=== PATIENT | female | born 1930 | race Caucasian/White ===

== ENCOUNTER 2016-10-21 10:12 | Day surgery (SDC) | payer MEDICARE, OTHER ==
[~2016-10-21 10:12] MED LIST: RINGERS SOLUTION,LACTATED 1,000 ML IV PRN
--- OUTSIDE RECORDS SUMMARY | 2016-10-21 10:15 | XMS REPORT | Continuity of Care Document ---
:1930 Author Organization [facility] ([facility]) Address [address] [place] [address] Phone [phone] Care Team Providers Name Role Phone Nav Browne Primary Care Provider [phone] Source Comments This disclosure is being made pursuant to the Care Everywhere program, applicable federal and state laws, and may not contain all informaitonavailable regarding this patient.[facility] ([facility]) Active Allergies and Adverse Reactions No Known Allergies Current Medications Prescription Sig. Disp. Refills Start Date End Date Status fluticasone-salmeter Use 1 Puff by Active ol (ADVAIR 250-50) inhalation every inhaler 12 hours. tiotropium (SPIRIVA) Use 18 mcg by Active 18 mcg inhalation inhalation daily capsule . folic acid 1 mg Take 1 mg by Active tablet mouth daily. potassium chloride Take 10 mEq by Active 10 mEq XR tablet mouth daily . albuterol 2.5 mg/3 Use 3 mL by Active mL inhalation inhalation every solution 4 hours as needed (shortness of breath, wheezing). atenolol 25 mg Take 25 mg by Active tablet mouth daily. clopidogrel 75 mg Take 75 mg by Active tablet mouth daily. gabapentin 300 mg Take 300 mg by Active capsule mouth 3 times daily. ibuprofen 200 mg Take 400 mg by Active tablet mouth every 6 hours as needed (pain). levothyroxine 88 mcg Take 88 mcg by Active tablet mouth every morning before breakfast. magnesium citrate Drink 1/2 bottle Active solution and if no bowel movement in 30 minutes, drink other 1/2 bottle. . polyethylene glycol Take 17 g by Active 3350 17 gram packet mouth daily. montelukast 10 mg Take 10 mg by Active tablet mouth every evening . albuterol 90 Use 1-2 Puffs by Active mcg/Actuation inhalation every inhaler 4 hours as needed (wheezing). cholecalciferol Take 3,000 Units Active (VITAMIN D3) 1,000 by mouth daily. unit tablet meloxicam 15 mg Take 15 mg by Active tablet mouth daily. QUEtiapine 25 mg Take 25 mg by Active tablet mouth at bedtime. bisacodyl 10 mg Insert 1 30 Suppository 3 09/24/2015 Active suppository Suppository (10 mg total) rectally 2 times daily as needed. Active Problems Problem Noted Date Hypophosphatemia 09/21/2015 Hypomagnesemia 09/21/2015 Asthma 09/18/2015 SBO (small bowel obstruction) 09/18/2015 Acute kidney injury 10/11/2012 Stroke with cerebral ischemia 10/11/2012 Stroke 10/11/2012 Social History Tobacco Use Types Packs/Day Years Used Date Former Smoker Tobacco Cessation:Ready to Quit: No; Counseling Given: No Comments: Alcohol Use Drinks/Week oz/Week Comments Yes 1 Glasses of wine 0.6 rarely per pt. On special occassions since stroke in 2012 Last Filed Vital Signs Vital Sign Reading Time Taken Blood Pressure 161/85 09/24/2015 12:01 PM [employer] Pulse 79 09/24/2015 12:01 PM [employer] Temperature 36.9 C (98.4 F) 09/24/2015 12:01 PM [employer] Respiratory Rate 16 09/24/2015 12:01 PM [employer] Height 1.651 m (5' 5") 09/17/2015 10:45 PM [employer] Weight 77.7 kg (171 lb 4.8 oz) 09/23/2015 3:44 PM [employer] Body Mass Index 28.51 09/23/2015 3:44 PM [employer] Oxygen Saturation 97% 09/24/2015 12:01 PM [employer] Plan of Care Health Maintenance Due Date Last Done Comments Hepatitis B Vaccine (1 of 3 - Primary Series) 1930 Tdap Vaccine 01/22/1943 Td Vaccine 01/22/1950 Colonoscopy 01/22/1982 Zoster Vaccine 1992 Osteoporosis Screening (DXA Bone Density) 01/22/1997 Pneumococcal Vaccine (1 of 2 - PCV13) 01/22/1997 Influenza Vaccine: Seasonal (#1) 03/04/2016 Lipid Disorder Screening 10/12/2017 10/12/2012 Results from Last 3 Months Not on file
[2016-10-21] MEDS ORDERED: RINGERS SOLUTION,LACTATED 1,000 ML IV ONE (11:16)
[2016-10-21 13:43] VITALS: BP 124/72
--- NOTE | 2016-10-21 15:53 | OR ---
Operative Report - Dictated Report Narrative: OPERATIVE REPORT DATE OF OPERATION: 10/21/2016 PREOPERATIVE DIAGNOSIS: History of colon cancer. History of colon polyps. Abdominal distention POSTOPERATIVE DIAGNOSIS: Severe diverticulosis, otherwise normal exam to the small bowel to colon anastomosis OPERATION: Colonoscopy SURGEON: Cortes Doss MD ANESTHESIA: DEMETRIUS Celis CRNA INDICATIONS FOR PROCEDURE: The patient is an 86-year-old female referred by Dr. Browne. She had a right colon resection for cancer with subsequent colonoscopies in 1999, 2002, 2006, and 2009. She has had adenomatous polyps removed. She has persistent abdominal distention FINDINGS: Abdominal x-ray prior to the procedure revealed dilated small bowel loops. Extensive diverticulosis otherwise normal exam to the small bowel to colon anastomosis. No polyps identified. NARRATIVE OF PROCEDURE: The patient was identified in the holding area, and prior to the administration of anesthetic, a multidisciplinary timeout was observed. With the patient in the left lateral position and after the administration of intravenous sedation, the perineum was inspected. There was no evidence of pilonidal disease or skin breakdown. The external appearance of the anus was normal. Sphincter tone was good. The flexible fiberoptic colonoscope was inserted into the rectum which was insufflated with air. The rectal mucosa and submucosal vascular pattern appeared normal, the prep was seen to be complete. The scope was advanced through the sigmoid colon, which contained numerous non-impacted noninflamed diverticular openings. The scope was advanced up the descending colon, and around the splenic flexure where the triangular haustral architecture of the transverse colon was seen. The scope was advanced across the transverse colon to the small bowel to colon anastomosis which appeared normal. The mucosa at this level appeared normal. The scope was then slowly withdrawn in a circular fashion so that all aspects of colonic mucosa were inspected. The colon was somewhat tortuous with numerous large non-impacted noninflamed diverticular openings. The haustral architecture appeared well preserved throughout with no evidence of external compression. The mucosa and submucosal vascular pattern appeared normal, specifically there was no gross evidence to suggest colitis or inflammatory bowel disease and no AV malformations were seen. No polyps were encountered. The scope was gradually withdrawn to the level of the rectum. As much insufflated air as possible was removed. The scope was withdrawn from the patient and the procedure terminated. The patient tolerated the anesthetic and procedure well without complication and was transferred back to the ambulatory surgery area awake and in stable condition. The patient remained stable throughout a period of postoperative observation. Her abdomen did remain tympanitic in the right upper quadrant, however she denied abdominal discomfort, was able to tolerate by mouth intake, and was up without assistance. I shared the operative findings with the patient and she was offered copies of the photographs which appear in the medical record. She was discharged home with instructions not to engage in hazardous activity today , but may resume normal activity tomorrow, and advance diet as tolerated. She is to continue those medications as listed in the history and physical exam. I made arrangements to discuss her case with Dr. Browne. Reviewed and electronically signed
== END 2016-10-21 10:13 | disposition home or self-care (01) ==
LOC: AMB 10:12
PROVIDERS: ATTEND Surgery
PROC: 0DJD8ZZ Inspection of Lower Intestinal Tract, Via Natural or Artificial Opening Endoscopic (ICD-10-PCS; principal; 2016-10-21 12:00)
DX: Z12.11 Encounter for screening for malignant neoplasm of colon (principal); K57.30 Diverticulosis of large intestine without perforation or abscess without bleeding; I12.9 Hypertensive chronic kidney disease with stage 1 through stage 4 chronic kidney disease, or unspecified chronic kidney disease; N18.2 Chronic kidney disease, stage 2 (mild); J45.909 Unspecified asthma, uncomplicated; J44.9 Chronic obstructive pulmonary disease, unspecified; D64.9 Anemia, unspecified; K21.9 Gastro-esophageal reflux disease without esophagitis; E03.9 Hypothyroidism, unspecified; F32.9 Major depressive disorder, single episode, unspecified; F03.90 Unspecified dementia, unspecified severity, without behavioral disturbance, psychotic disturbance, mood disturbance, and anxiety; Z87.891 Personal history of nicotine dependence; Z85.038 Personal history of other malignant neoplasm of large intestine; Z68.29 Body mass index [BMI] 29.0-29.9, adult
CPT/HCPCS: 74000; G0105

== ENCOUNTER 2017-09-29 04:23 | Inpatient (IN) | payer MEDICARE, OTHER ==
[2017-09-29] MEDS ORDERED: ALBUTEROL SULFATE/IPRATROPIUM 3 ML NEBU IH ONE ×2 (04:27→04:28)
[2017-09-29] MEDS ORDERED: METHYLPREDNISOLONE SOD SUCC/PF 125 MG/2 ML VIAL IV ONE (04:28)
[2017-09-29 04:49] LABS: Hematocrit 33.5 % (37.0-47.0); Hemoglobin 11.6 gm/dL (12.5-16.0); Mean Cell Volume 88.6 fl (78-100); Mean Corpuscular Hemoglobin 30.7 pg (27-31); Mean Corpuscular Hgb Conc 34.6 g/dl (32-36); Mean Platelet Volume 10.9 fl (6.0-9.5); Neutrophil # 14.8 K/mm3 (1.3-6.0); Neutrophil % 86.1 % (42-75.0); Platelet Count 259 K/mm3 (150-450); Red Blood Count 3.78 M/mm3 (4.2-5.4); Red Cell Distribution Width 13.2 % (11.5-14.0); White Blood Count 17.2 K/mm3 (4.0-10.5)
--- NOTE | 2017-09-29 04:54 | ERNOTE ---
Dyspnea - Date Date of Service: 09/29/17 - General Presenting Symptoms: shortness of breath, difficulty of breathing, wheezing Time Seen by Provider: 09/29/17 04:27 Source: patient Exam Limitations: no limitations - Immun/Allergies/Home Medications Immunizations: IMMUNIZATION HX Immunizations Up to Date No History of Influenza Vaccine No Hx Pneumococcal Vaccination No Allergies/Adverse Reactions: Allergies ceftriaxone sodium [From Rocephin] Allergy (Mild, Verified 09/29/17 04:41) SWELLING Home Medications: HOME MEDICATIONS Acetaminophen [Tylenol] 325 mg PO Q4H PRN 03/18/16 [Last Taken Unknown] Albuterol Sulfate [Proair Hfa] 1 - 2 puff IH Q4H PRN 03/18/16 [Last Taken Unknown] Atenolol [Tenormin] 25 mg PO DAILY 03/18/16 [Last Taken Unknown] Baclofen 10 mg PO TID 03/18/16 [Last Taken Unknown] Clopidogrel Bisulfate [Plavix] 75 mg PO DAILY 03/18/16 [Last Taken Unknown] Fluticasone/Salmeterol [Advair 250-50 Diskus] 1 puff IH BID 03/18/16 [Last Taken Unknown] Folic Acid 1 mg PO DAILY 03/18/16 [Last Taken Unknown] Gabapentin 300 mg PO TID 03/18/16 [Last Taken Unknown] Levothyroxine Sodium [Synthroid] 88 mcg PO DAILY 03/18/16 [Last Taken Unknown] Meloxicam [Mobic] 15 mg PO DAILY PRN 03/18/16 [Last Taken Unknown] Montelukast Sodium [Singulair] 10 mg PO DAILY 03/18/16 [Last Taken Unknown] Potassium Chloride [Klor-Con 10] 10 meq PO DAILY 03/18/16 [Last Taken Unknown] QUEtiapine FUMARATE [Seroquel] 25 mg PO DAILY 03/18/16 [Last Taken Unknown] Tiotropium [place] [Spiriva] 1 cap IH DAILY 03/18/16 [Last Taken Unknown] traMADol HCL [Ultram] 50 mg PO Q6H PRN 03/18/16 [Last Taken Unknown] Albuterol Sulfate [Albuterol Sulfate 2.5 MG/3 ML] 2.5 mg IH QID 10/08/16 [Last Taken Unknown] Albuterol Sulfate/Ipratropium [Duoneb 2.5-0.5MG/3ML Soln] 3 ml IH Q4H PRN [Last Taken Unknown] Docusate Sodium [Colace] 100 mg PO BID 10/08/16 [Last Taken Unknown] Polyethylene Glycol 3350 [Miralax] 17 gm PO BID 10/08/16 [Last Taken Unknown] Sennosides [Senokot] 17.2 mg PO HS 10/08/16 [Last Taken Unknown] l Acidophil/B Lactis/B Longum [Florajen3 Capsule] 460 mg PO DAILY 10/08/16 [ Last Taken Unknown] Cholecalciferol (Vitamin D3) [Vitamin D3] 1,000 unit PO DAILY 09/29/17 [Last Taken Unknown] - History of Present Illness Narrative: patient with known hx of copd has become sob in last 2-3 days Severity: moderate Treatment CLINICAL TRIAL EDUCATOR: none Initiating event: Reports: upper resp illness Frequency of episodes: Reports: frequent episodes, chronic episodes Modifying Factors - (Improves): Reports: nothing Modifying Factors (Worsens): Reports: activity Associated Symptoms-Dyspnea: Reports: fever/chills, cough Review of Systems - Narrative Narrative: chronic copd - Review of Systems Constitutional: Present: See HPI, weakness, fatigue, malaise EYE: Present: no symptoms reported ENT: Present: no symptoms reported Respiratory: Present: See HPI, shortness of breath, cough, orthopnea, wheezing Cardiology: Present: no symptoms reported Gastrointestinal/Abdominal: Present: no symptoms reported Genitourinary: Present: no symptoms reported Musculoskeletal: Present: no symptoms reported Skin: Present: no symptoms reported Neurological: Present: no symptoms reported Endocrine: Present: no symptoms reported Hematologic/Lymphatic: Present: no symptoms reported Psych: Present: no symptoms reported All Other Systems: All systems neg except as marked - Narrative Narrative: chronic copd - Patient's Past Medical History Patient History - Medical: Anemia, Dementia, Depression, Fibromyalgia, GERD, Hypothyroidism, Liver Disease, Renal Failure, Other Patient History - Cardiac/Respiratory: Atrial Fibrillation, Coronary Heart Disease, COPD, Hypertension Patient History - Cancer: Colon, Surgical Treatment Patient History - Surgical Procedures: Appendectomy, Colon Resection, Colonoscopy, T & A, Other Patient History - Other: None LMP (females 10-50): Menopausal - Family History Family History:: no untoward family reactions to anesthesia, no familial bleeding tendencies, no family history of clotting disorders, no family history of premature - Family History Children Family History - Medical: No pertinent hx Family History - Cardiac/Respiratory: No pertinent hx Family History - Cancer: Breast Father Family History - Medical: , No pertinent hx Family History - Cardiac/Respiratory: Coronary Heart Disease, CHF Family History - Cancer: No pertinent family hx Grandmother-Maternal Family History - Medical: , No pertinent hx Family History - Cardiac/Respiratory: No pertinent hx Family History - Cancer: Breast Sister Family History - Medical: , Other Family History - Cardiac/Respiratory: No pertinent hx Family History - Cancer: No pertinent family hx Mother Family History - Medical: , No pertinent hx, Other Family History - Cardiac/Respiratory: No pertinent hx Family History - Cancer: No pertinent family hx - Social History Living Situations: assisted living Abuse History: No History of abuse Psych History: No pertinent hx Smoking Status: Former smoker Have you smoked in the past 12 months: No Do you dip or chew tobacco: No Patient requests Smoking Cessation Consult: No Initiate information on Smoking Cessation: No Alcohol Use: none Drug Use: none - Immunizations Immunizations Up to Date: No Hx Pneumococcal Vaccination: No History of Influenza Vaccine: No Physical Exam - Physical Exam General Appearance: Present: severe distress, anxious Head Exam: Present: normal inspection, no evidence of injury Eye Exam: Normal inspection: bilateral, PERRL: bilateral, EOMI: bilateral Ears, Nose, Throat: Present: normal ENT inspection Neck: Present: normal inspection, nontender Respiratory: Present: respiratory distress, accessory muscle use, decreased breath sounds, rales, rhonchi, wheezing Cardiovascular/Chest: Present: regular rate, rhythm, no murmur, normal peripheral pulses Gastrointestinal/Abdominal: Present: normal bowel sounds, nontender, nondistended, soft, no organomegaly Back Exam: Present: normal inspection, normal range of motion, no CVA tenderness , no vertebral tenderness Extremity Exam: Present: normal inspection, non-tender, normal range of motion, no edema Neurological Exam: Present: alert, oriented, normal mood/affect, no motor/ sensory deficits Skin Exam: Present: normal color, warm/dry Lymphatic Exam: Present: no adenopathy ED Progress - Date and Time Seen: Date and Time: 09/29/17 05:33 patient improved,discussed labs and x-rays with hospitalist who accepts patient for admission to acute status - Results and Orders Patient's Lab Results:: I have reviewed the patient's lab results. - Vital Signs Patient's Vital Signs:: I have reviewed the patient's vital signs. Vital Signs: Vital Signs 09/29/17 09/29/17 09/29/17 04:24 04:33 04:42 Temperature 38.7 C H 38.0 C H Pulse Rate 90 88 86 Respiratory 20 22 H 21 H Rate Blood Pressure 140/58 150/51 O2 Sat by Pulse 92 93 93 Oximetry - EKG EKG: NSR EKG read: Interp. by me - X-Ray X-Ray #1 X-Ray: chest Interpretation: Interp. by me - copd, lll pneumonia - Progress/Reassessment Chief Complaint: Dyspnea Progress:: Improved - Transfer of Care Expected Disposition: Admit Plan - Plan Plan: to be admitted Departure Clinical Impression: Moderate COPD (chronic obstructive pulmonary disease) - Departure Disposition: Short Term Hospital w/Plan re Condition: Serious
[2017-09-29] MEDS ORDERED: METHYLPREDNISOLONE SOD SUCC/PF 125 MG/2 ML VIAL ONE (04:57)
[2017-09-29 05:05] LABS: ALT 17 U/L (19-67); AST 14 U/L (0-48); Albumin * 3.1 gm/dl (3.4-5.0); Alkaline Phosphatase * 104 U/L (50-170); Anion Gap 14.9 mmol/L (6.8-13.8); BNP * 1291 pg/mL (5-550); BUN/Creatinine Ratio 13.1 (9.0-21.6); Bilirubin, Total 0.9 mg/dL (0.0-1.1); Blood Urea Nitrogen 19 mg/dL (3-23); Ca. Corrected For Albumin 8.8 mg/dL (8.4-10.2); Calcium * 8.4 mg/dL (7.9-10.9); Carbon Dioxide 25.2 mmol/L (24-32.6); Chloride 102 mmol/L (97-106); Glucose * 157 mg/dL (70-110); Potassium 4.1 mmol/L (3.4-4.6); Sodium 138 mmol/L (132-142); Total Protein 7.4 gm/dL (6.2-8.2); Troponin I Less than 0.017 ng/ml (0.00-0.10)
[2017-09-29 05:24] LABS: CRP 20.1 mg/dL (0.0-0.9)
[2017-09-29] MEDS ORDERED: ALBUTEROL SULFATE 2.5 MG/0.5 ML VIAL.NEB IH PRN (05:37)
[2017-09-29] MEDS ORDERED: AZITHROMYCIN 500 MG in DEXTROSE 5 % IN WATER 250 ML IV SCH ×2 (05:45)
[2017-09-29] MEDS ORDERED: METHYLPREDNISOLONE SOD SUCC 60 MG in WATER FOR INJ.,BACTERIOSTATIC 0 ML IV SCH (05:45)
[2017-09-29] MEDS ORDERED: LEVOFLOXACIN IN DEXTROSE 5 % 750 MG/150 ML BAG IV ONE (07:30)
--- NOTE | 2017-09-29 08:35 | HP ---
Chief Complaint - Chief Complaint Date of Service: 09/29/17 Time of Service: 08:24 Chief Complaint: SOB, fever, wheezing History of Present Illness: Pt. is an 87yo WF, resident at the [facility], with PMH significant for COPD, who presented to the ER early this am due to severe SOB, wheezing, Fever. History is per records as ptMinna is very somnolent and not able to give history. In the ER she was noted to be 80% on RA, RR 20, but documented to be laboring, Temp 0f 38.7. Her influenza was negative. CXR was negative, but she did have a leukocytosis of 17K with a left shift, CRP > 20 and required 3 LNC to keep sats in the low 90's. Due to rocephin allergy she was given zithromax, 250mg due to CRF stage 3 and was admitted for further care. - Patient's Past Medical History Patient History - Medical: Anemia, Dementia, Depression, Fibromyalgia, GERD, Hypothyroidism, Liver Disease, Renal Failure, Other Patient History - Cardiac/Respiratory: Atrial Fibrillation, Coronary Heart Disease, COPD, CVA/Stroke, Hypertension Patient History - Cancer: Colon, Surgical Treatment Patient History - Surgical Procedures: Appendectomy, Colon Resection, Colonoscopy, T & A, Other Patient History - Other: None LMP (females 10-50): Menopausal - Family History Family History:: no untoward family reactions to anesthesia, no familial bleeding tendencies, no family history of clotting disorders, no family history of premature - Family History Children Family History - Medical: No pertinent hx Family History - Cardiac/Respiratory: No pertinent hx Family History - Cancer: Breast Father Family History - Medical: , No pertinent hx Family History - Cardiac/Respiratory: Coronary Heart Disease, CHF Family History - Cancer: No pertinent family hx Grandmother-Maternal Family History - Medical: , No pertinent hx Family History - Cardiac/Respiratory: No pertinent hx Family History - Cancer: Breast Sister Family History - Medical: , Other Family History - Cardiac/Respiratory: No pertinent hx Family History - Cancer: No pertinent family hx Mother Family History - Medical: , No pertinent hx, Other Family History - Cardiac/Respiratory: No pertinent hx Family History - Cancer: No pertinent family hx - Social History Living Situations: assisted living Abuse History: No History of abuse Psych History: No pertinent hx Smoking Status: Former smoker Have you smoked in the past 12 months: No Do you dip or chew tobacco: No Patient requests Smoking Cessation Consult: No Initiate information on Smoking Cessation: No Alcohol Use: none Drug Use: none - Immunizations Immunizations Up to Date: No Hx Pneumococcal Vaccination: No History of Influenza Vaccine: No Review Of Systems (GEN) - Review of Systems Generalized/Overall Review: Present: Fever, Malaise Respiratory: Present: Shortness of Breath, Wheezing Additional Comments: unable to obtain ROS due to pt. status. Immunizations: IMMUNIZATION HX Immunizations Up to Date No History of Influenza Vaccine No Hx Pneumococcal Vaccination No Allergies/Adverse Reactions: Allergies Allergy/AdvReac Type Severity Reaction Status Date / Time ceftriaxone sodium Allergy Mild SWELLING Verified 09/29/17 07:28 [From Rocephin] Home Medications: HOME MEDICATIONS Acetaminophen [Tylenol] 325 mg PO Q4H PRN 03/18/16 [Last Taken Unknown] Albuterol Sulfate [Proair Hfa] 1 - 2 puff IH Q4H PRN 03/18/16 [Last Taken Unknown] Atenolol [Tenormin] 25 mg PO DAILY 03/18/16 [Last Taken Unknown] Baclofen 10 mg PO TID 03/18/16 [Last Taken Unknown] Clopidogrel Bisulfate [Plavix] 75 mg PO DAILY 03/18/16 [Last Taken Unknown] Folic Acid 1 mg PO DAILY 03/18/16 [Last Taken Unknown] Gabapentin 300 mg PO TID 03/18/16 [Last Taken Unknown] Levothyroxine Sodium [Synthroid] 88 mcg PO DAILY 03/18/16 [Last Taken Unknown] Meloxicam [Mobic] 15 mg PO DAILY PRN 03/18/16 [Last Taken Unknown] Montelukast Sodium [Singulair] 10 mg PO DAILY 03/18/16 [Last Taken Unknown] Potassium Chloride [Klor-Con 10] 10 meq PO DAILY 03/18/16 [Last Taken Unknown] QUEtiapine FUMARATE [Seroquel] 25 mg PO DAILY 03/18/16 [Last Taken Unknown] Tiotropium [place] [Spiriva] 1 cap IH DAILY 03/18/16 [Last Taken Unknown] traMADol HCL [Ultram] 50 mg PO Q6H PRN 03/18/16 [Last Taken Unknown] Albuterol Sulfate [Albuterol Sulfate 2.5 MG/3 ML] 2.5 mg IH QID 10/08/16 [Last Taken Unknown] Docusate Sodium [Colace] 100 mg PO BID 10/08/16 [Last Taken Unknown] Polyethylene Glycol 3350 [Miralax] 17 gm PO BID 10/08/16 [Last Taken Unknown] Sennosides [Senokot] 17.2 mg PO HS 10/08/16 [Last Taken Unknown] l Acidophil/B Lactis/B Longum [Florajen3 Capsule] 460 mg PO DAILY 10/08/16 [ Last Taken Unknown] Cholecalciferol (Vitamin D3) [Vitamin D3] 1,000 unit PO DAILY 09/29/17 [Last Taken Unknown] Fluticasone/Salmeterol [Advair 250-50 Diskus] 1 puff IH BID 09/29/17 [Last Taken Unknown] Exam - Exam Vital Signs: Vital Signs - Last Taken Temp 37.0 C 09/29/17 07:16 Pulse 87 09/29/17 07:41 Resp 22 H 09/29/17 07:16 BP 129/49 09/29/17 07:16 Pulse Ox 93 09/29/17 07:16 Constitutional: Present: Moderate distress, Obtunded, Elderly Respiratory: Present: respiratory distress, accessory muscle use, crackles, wheezing, expiration (prolonged) Cardiovascular/Chest: Present: regular rate, rhythm, systolic murmur Abdomen: Present: Normal bowel sounds, soft, nontender, nondistended, no rebound tenderness, no hepatospenomegaly, distended Diagnostic Studies: Laboratory Results WBC 17.2 K/mm3 (4.0-10.5) H 09/29/17 04:35 RBC 3.78 M/mm3 (4.2-5.4) L 09/29/17 04:35 Hgb 11.6 gm/dL (12.5-16.0) L 09/29/17 04:35 Hct 33.5 % (37.0-47.0) L 09/29/17 04:35 MCV 88.6 fl (78-100) 09/29/17 04:35 MCH 30.7 pg (27-31) 09/29/17 04:35 MCHC 34.6 g/dl (32-36) 09/29/17 04:35 RDW 13.2 % (11.5-14.0) 09/29/17 04:35 Plt Count 259 K/mm3 (150-450) 09/29/17 04:35 MPV 10.9 fl (6.0-9.5) H 09/29/17 04:35 Immature Gran % (Auto) 0.40 % (0.001-0.429) 09/29/17 04:35 Immature Gran # (Auto) 0.07 K/mm3 (0.000-0.0310) H 09/29/17 04:35 Neutrophils % 86.1 % (42-75.0) H 09/29/17 04:35 Lymphocytes % 7.8 % (20-51) L 09/29/17 04:35 Monocytes % 5.0 % (0.0-9) 09/29/17 04:35 Eosinophils % 0.2 % (0.0-3.0) 09/29/17 04:35 Basophils % 0.5 % (0.0-1.0) 09/29/17 04:35 Nucleated RBC % 0.0 k/mm3 (0-1) 09/29/17 04:35 Neutrophils # 14.8 K/mm3 (1.3-6.0) H 09/29/17 04:35 Lymphocytes # 1.3 k/mm3 (1.5-3.5) L 09/29/17 04:35 Monocytes # 0.9 k/mm3 (0.0-1.0) 09/29/17 04:35 Eosinophils # 0.0 k/mm3 (0.0-0.7) 09/29/17 04:35 Absolute Basophils 0.1 k/mm3 (0.0-0.1) 09/29/17 04:35 pCO2 30.5 mmHg (32.0-45.0) L 09/29/17 04:44 pO2 73.3 mmHg (83.0-108.0) L 09/29/17 04:44 HCO3 20.3 mmol/L (21.0-28.0) L 09/29/17 04:44 Total CO2 21.3 mmol/L (19.0-24.0) 09/29/17 04:44 Base Excess -2.6 mmol/L (-2.0-3.0) L 09/29/17 04:44 ABG pH 7.44 (7.35-7.45) 09/29/17 04:44 ABG O2 Sat (Measured) 95.5 % (94.0-98.0) 09/29/17 04:44 Sodium 138 mmol/L (132-142) 09/29/17 04:35 Plasma Sodium 139 mmol/L (130-142) 09/29/17 04:35 Potassium 4.1 mmol/L (3.4-4.6) 09/29/17 04:35 Chloride 102 mmol/L (97-106) 09/29/17 04:35 Carbon Dioxide 25.2 mmol/L (24-32.6) 09/29/17 04:35 Anion Gap 14.9 mmol/L (6.8-13.8) H 09/29/17 04:35 BUN 19 mg/dL (3-23) 09/29/17 04:35 Creatinine 1.45 mg/dL (0.4-1.4) H 09/29/17 04:35 Est GFR (Non-Af Amer) 36 mL/min (60-130) L 09/29/17 04:35 BUN/Creatinine Ratio 13.1 (9.0-21.6) 09/29/17 04:35 Random Glucose 157 mg/dL (70-110) H 09/29/17 04:35 Lactic Acid, Venous 0.7 mmol/L (0.4-1.9) 09/29/17 04:50 Calcium 8.4 mg/dL (7.9-10.9) 09/29/17 04:35 Calcium Adj for Albumin 8.8 mg/dL (8.4-10.2) 09/29/17 04:35 Total Bilirubin 0.9 mg/dL (0.0-1.1) 09/29/17 04:35 AST 14 U/L (0-48) 09/29/17 04:35 ALT 17 U/L (19-67) L 09/29/17 04:35 Alkaline Phosphatase 104 U/L (50-170) 09/29/17 04:35 Troponin I Less than 0.017 ng/ml (0.00-0.10) 09/29/17 04:35 C-Reactive Prot, Quant 20.1 mg/dL (0.0-0.9) H 09/29/17 04:35 B-Natriuretic Peptide 1291 pg/mL (5-550) H 09/29/17 04:35 Total Protein 7.4 gm/dL (6.2-8.2) 09/29/17 04:35 Albumin 3.1 gm/dl (3.4-5.0) L 09/29/17 04:35 Procalcitonin 0.29 ng/mL (0.05-0.50) 09/29/17 04:35 Influenza Type A Ag Negative (NEGATIVE) 09/29/17 04:40 Influenza Type B Ag Negative (NEGATIVE) 09/29/17 04:40 Assessment/Plan - Assessment/Plan (1) COPD exacerbation Assessment: will do steroids and nebs and the levaquin should cover this as well as pneumonia. Problem: Acute (2) Chronic renal disease, stage 2, mildly decreased glomerular filtration rate between 60-89 mL/min/1.73 square meter Assessment: stable. may need to modify levaquin dosing. Problem: Acute (3) respiratory failure hypoxemia acute Assessment: on O2, will try to keep sats in the 90-95%, wean her as possible. Problem: Acute (4) Dementia Assessment: follow. Problem: Chronic Qualifiers: Dementia type: unspecified type Dementia behavioral disturbance: without behavioral disturbance Qualified Code(s): F03.90 - Unspecified dementia without behavioral disturbance (5) Discharge planning issues Assessment: anticipate her being here a minimum of 2 midnights as we see how she responds to tx and is able to be weaned off O2. Problem: Acute (6) Pneumonia Assessment: given how sick she appears, would guess this is strep pneumonia. microbiology pending. will change to levaquin as I don't believe the azithromycin is broad spectrum enough given how sick she appears. given the rales on the right, aspiration pneumonia is a possibility Problem: Acute Qualifiers: Pneumonia type: due to unspecified organism Laterality: unspecified laterality Lung location: unspecified part of lung Qualified Code(s): J18.9 - Pneumonia, unspecified organism
[2017-09-29] MEDS: METHYLPREDNISOLONE SOD SUCC 60 MG in WATER FOR INJ.,BACTERIOSTATIC 0 ML IV SCH ×3 (11:18→22:44)
[2017-09-29] MEDS: ACETAMINOPHEN 325 MG TABLET PO PRN (23:09)
[2017-09-29] MEDS ORDERED: ALBUTEROL SULFATE 2.5 MG/0.5 ML VIAL.NEB IH SCH (23:30)
[2017-09-30] MEDS: ALBUTEROL SULFATE 2.5 MG/0.5 ML VIAL.NEB IH SCH ×6 (01:59→22:21)
[2017-09-30] MEDS: METHYLPREDNISOLONE SOD SUCC 60 MG in WATER FOR INJ.,BACTERIOSTATIC 0 ML IV SCH ×3 (04:35→20:49)
[2017-09-30] MEDS ORDERED: BISACODYL 10 MG SUPP.RECT RC ONE ×2 (07:00→10:15)
--- NOTE | 2017-09-30 07:02 | PN ---
Subjective - Date and Time Seen Date: 09/30/17 Time: 06:52 Subjective Narrative: Pt. complains of more abdominal pain this am, though does not appear to be in any significant pain. States she hasn't had a bm in at least 2 days. Feels her breathing is better this am. Objective - Review of Systems Generalized/Overall Review: Reports: Weakness. Denies: Chills, Fever, Malaise EENTM: Reports: No Symptoms Reported Respiratory: Reports: Cough, Shortness of Breath, Wheezing Cardiac: Denies: Chest Pain, Edema, Palpitations Abdominal: Reports: Abdominal Pain, Constipation Genitourinary Symptoms: Reports: No Symptoms Reported Musculoskeletal Complaints: Reports: No Symptoms Reported Neurological: Reports: No Symptoms Reported Skin: Reports: No Symptoms Reported Endocrine: Reports: No Symptoms Reported - Vitals Vitals: Last Vital Signs Temp 36.7 C 09/30/17 06:39 Pulse 96 09/30/17 06:39 Resp 18 09/30/17 06:39 BP 154/72 09/30/17 06:39 Pulse Ox 94 09/30/17 06:39 - Exam Constitutional: Present: Alert, Cooperative, Mild distress - respiratory ENT Exam: Present: hearing grossly normal Neck: Present: supple Respiratory: Present: respiratory distress - mild, accessory muscle use, rales, wheezing, expiration (prolonged) Cardiovascular/Chest: Present: regular rate, rhythm, systolic murmur Abdomen: Present: tender, distended, hypoactive. Absent: guarding, rigidity, rebound tenderness Extremity: Present: non-tender Skin Exam: Present: normal color Neurologic: Present: normal mood/affect Appearance: Present: appropriate appearance, appropriate insight, neat Eye contact: Present: cooperative, good eye contact, normal speech Thoughts: Present: normal thought pattern, no apparent hallucination Assessment/Plan - Problems/Diagnosis (1) COPD exacerbation Problem: Acute Narrative: improved slightly. will continue nebs at least qid, reduce steroids slightly. continue Cornet use q2hrs awake. (2) Chronic renal disease, stage 2, mildly decreased glomerular filtration rate between 60-89 mL/min/1.73 square meter Problem: Chronic Narrative: CrCl is 49 (3) respiratory failure hypoxemia acute Problem: Acute Narrative: appears to be resolved at rest. will walk her today and see what her sats do. She is currently maintaining sats in the low 90's on RA at rest. (4) Dementia Problem: Chronic Qualifiers: Dementia type: unspecified type Dementia behavioral disturbance: without behavioral disturbance Qualified Code(s): F03.90 - Unspecified dementia without behavioral disturbance Narrative: noted memory issues by nursing. nasima caceres noted this am, but does have some medication memory issues. (5) Pneumonia Problem: Acute Qualifiers: Pneumonia type: due to unspecified organism Laterality: unspecified laterality Lung location: unspecified part of lung Qualified Code(s): J18.9 - Pneumonia, unspecified organism Narrative: continue levaquin as she does appear to be improving. will dose q48hrs due to crcl of 49 and will do 5 total doses. (6) Abdominal distension (gaseous) Problem: Acute Narrative: possible PSBO or possible ileus. will be sure not due to constipation issue with suppository and miralax. will put on bowel rest for now and start IVF. will allow sips of water. (7) Constipation, acute Problem: Acute Narrative: miralax and dulcolax suppository. (8) Discharge planning issues Problem: Acute Narrative: can discharge when bowel pattern has improved and she can ambulate without need for O2. Anticipate tomorrow being the earliest we might d/c.
[2017-09-30] MEDS: DEXTROSE 5%-0.5 NORMAL SALINE 1,000 ML IV PRN ×2 (08:58→17:11)
[2017-09-30] MEDS: POLYETHYLENE GLYCOL 3350 119 GM BTL PO SCH ×2 (10:01→10:02)
[2017-09-30] MEDS: TIOTROPIUM BROMIDE 5 CAP INHALER IH SCH (15:27)
[2017-09-30] MEDS: LEVOTHYROXINE SODIUM 88 MCG TABLET PO SCH (15:27)
[2017-09-30] MEDS: QUEtiapine FUMARATE 25 MG TABLET PO SCH (20:49)
[2017-09-30] MEDS: SENNOSIDES 8.6 MG TABLET PO SCH (20:49)
[2017-09-30] MEDS: FLUTICASONE/SALMETEROL 14 PUFF DISK.W.DEV IH SCH (20:49)
[2017-10-01] MEDS: DEXTROSE 5%-0.5 NORMAL SALINE 1,000 ML IV PRN ×3 (00:32→17:30)
[2017-10-01] MEDS: ALBUTEROL SULFATE 2.5 MG/0.5 ML VIAL.NEB IH SCH ×2 (02:37→06:03)
[2017-10-01] MEDS: METHYLPREDNISOLONE SOD SUCC 60 MG in WATER FOR INJ.,BACTERIOSTATIC 0 ML IV SCH ×2 (04:16→15:13)
[2017-10-01 06:18] LABS: Albumin * 2.9 gm/dl (3.4-5.0); Anion Gap 14.7 mmol/L (6.8-13.8); BUN/Creatinine Ratio 16.5 (9.0-21.6); Bilirubin, Total 0.4 mg/dL (0.0-1.1); Ca. Corrected For Albumin 9.5 mg/dL (8.4-10.2); Calcium * 8.9 mg/dL (7.9-10.9); Carbon Dioxide 26.5 mmol/L (24-32.6); Potassium 4.2 mmol/L (3.4-4.6); Total Protein 7.5 gm/dL (6.2-8.2)
[2017-10-01] MEDS: ACETAMINOPHEN 325 MG TABLET PO PRN (07:50)
[2017-10-01] MEDS: LEVOTHYROXINE SODIUM 88 MCG TABLET PO SCH (07:51)
--- NOTE | 2017-10-01 08:26 | PN ---
Subjective - Date and Time Seen Date: 10/01/17 Time: 08:14 Subjective Narrative: Pt. states had BM yesterday. Abdomen is less tender. Nursing notes BS x 4. She still has harsh cough and is too tired and weak to walk very far. Is wondering why she shakes so much. Objective - Review of Systems Generalized/Overall Review: Reports: Weakness. Denies: Chills, Fever, Malaise EENTM: Reports: No Symptoms Reported Respiratory: Reports: Cough, Shortness of Breath Cardiac: Denies: Chest Pain, Edema, Palpitations Abdominal: Reports: Constipation. Denies: Nausea, Vomiting, Abdominal Pain, Diarrhea, Melena Genitourinary Symptoms: Reports: No Symptoms Reported Musculoskeletal Complaints: Reports: No Symptoms Reported Neurological: Reports: Tremors, Weakness Skin: Reports: No Symptoms Reported Endocrine: Reports: No Symptoms Reported - Vitals Vitals: Last Vital Signs Temp 37 C 10/01/17 07:56 Pulse 78 10/01/17 07:56 Resp 20 10/01/17 07:56 BP 162/80 10/01/17 07:56 Pulse Ox 94 10/01/17 07:56 - Abnormal Lab Findings Abnormal Lab Findings: Abnormal Lab Results 10/01/17 Range/Units 05:57 Plasma Sodium 143 H (130-142) mmol/L Anion Gap 14.7 H (6.8-13.8) mmol/L Est GFR (Non-Af Amer) 48 L D (60-130) mL/min Random Glucose 205 H D (70-110) mg/dL ALT 15 L (19-67) U/L Albumin 2.9 L (3.4-5.0) gm/dl - EKG/Xray Findings EKG: NSR - Exam Constitutional: Present: Alert, Cooperative, Mild distress ENT Exam: Present: hearing grossly normal Neck: Present: supple Respiratory: Present: no respiratory distress, accessory muscle use, rhonchi, expiration (prolonged), other - mild breathlessness Cardiovascular/Chest: Present: regular rate, rhythm, systolic murmur Abdomen: Present: Normal bowel sounds, soft, nontender, no rebound tenderness, distended. Absent: guarding, rigidity Skin Exam: Present: normal color Lymphatic: Present: no adenopathy Neurologic: Present: normal mood/affect, other - very tremulous, especially left hand. Appearance: Present: appropriate appearance Eye contact: Present: cooperative, good eye contact, decreased rate of speech Thoughts: Present: normal thought pattern, no apparent hallucination Assessment/Plan - Problems/Diagnosis (1) COPD exacerbation Problem: Acute Narrative: improved, but still very coarse BS del, worsens with cough. Reduce steroids to q12hrs. will change nebs to prn due to tremors. continue spiriva (2) Chronic renal disease, stage 2, mildly decreased glomerular filtration rate between 60-89 mL/min/1.73 square meter Problem: Chronic Narrative: Cr improved with IVF. will continue until current Liter is completed then saline lock. (3) respiratory failure hypoxemia acute Problem: Resolved Narrative: now on RA and sats in low 90's. (4) Dementia Problem: Chronic Qualifiers: Dementia type: unspecified type Dementia behavioral disturbance: without behavioral disturbance Qualified Code(s): F03.90 - Unspecified dementia without behavioral disturbance (5) Pneumonia Problem: Acute Qualifiers: Pneumonia type: due to unspecified organism Laterality: unspecified laterality Lung location: unspecified part of lung Qualified Code(s): J18.9 - Pneumonia, unspecified organism Narrative: improving, continue levaquin q48hrs. 750mg PO. (6) Abdominal distension (gaseous) Problem: Acute Narrative: Probably PSBO that has now resolved. will do full liquids and then advance diet as tolerated. (7) Constipation, acute Problem: Acute Narrative: continue miralax, prn dulcolax supp. (8) Weakness Problem: Acute Narrative: PT for strengthening. Pt. unable to walk very far. If no improvement in the next couple days then may need to go SNF to [place]. (9) Discharge planning issues Problem: Acute Narrative: Since just resuming PO intake and with her weakness, anticipate that it will be at least until Friday before she will be discharged. (10) Partial small bowel obstruction Problem: Suspected Narrative: appears to be resolved.
[2017-10-01] MEDS: LEVOFLOXACIN IN DEXTROSE 5 % 750 MG/150 ML BAG IV SCH (09:29)
[2017-10-01] MEDS: POLYETHYLENE GLYCOL 3350 119 GM BTL PO SCH (09:30)
[2017-10-01] MEDS: TIOTROPIUM BROMIDE 5 CAP INHALER IH SCH (09:30)
[2017-10-01] MEDS: ATENOLOL 25 MG TABLET PO SCH (09:30)
[2017-10-01] MEDS: FLUTICASONE/SALMETEROL 14 PUFF DISK.W.DEV IH SCH ×2 (09:30→20:58)
[2017-10-01] MEDS: CLOPIDOGREL BISULFATE 75 MG TABLET PO SCH (09:31)
[2017-10-01] MEDS: MONTELUKAST SODIUM 10 MG TABLET PO SCH (09:31)
[2017-10-01] MEDS: QUEtiapine FUMARATE 25 MG TABLET PO SCH (09:47)
[2017-10-01] MEDS: ALBUTEROL SULFATE 2.5 MG/0.5 ML VIAL.NEB IH PRN (19:37)
[2017-10-01] MEDS: SENNOSIDES 8.6 MG TABLET PO SCH (20:58)
[2017-10-02] MEDS: DEXTROSE 5%-0.5 NORMAL SALINE 1,000 ML IV PRN ×3 (01:31→11:25)
[2017-10-02] MEDS: METHYLPREDNISOLONE SOD SUCC 60 MG in WATER FOR INJ.,BACTERIOSTATIC 0 ML IV SCH ×2 (04:27→17:09)
[2017-10-02] MEDS: ALBUTEROL SULFATE 2.5 MG/0.5 ML VIAL.NEB IH PRN ×2 (05:58→10:27)
--- NOTE | 2017-10-02 06:58 | PN ---
Subjective - Date and Time Seen Date: 10/02/17 Time: 06:46 Subjective Narrative: Patient seen today AOX3 in bed with reports of nausea, vomiting and abdominal pain. pt stated he belly was feeling much harder than it did yesterday. Objective - Review of Systems Generalized/Overall Review: Reports: No Symptoms Reported EENTM: Reports: No Symptoms Reported Respiratory: Reports: Cough, Shortness of Breath, Wheezing Cardiac: Reports: No Symptoms Reported Abdominal: Reports: Nausea, Vomiting, Abdominal Pain Genitourinary Symptoms: Reports: No Symptoms Reported Musculoskeletal Complaints: Reports: No Symptoms Reported Neurological: Reports: Tremors - left hand Skin: Reports: No Symptoms Reported - Vitals Vitals: Last Vital Signs Temp 36.8 C 10/01/17 23:51 Pulse 90 10/01/17 23:51 Resp 22 H 10/01/17 23:51 BP 144/101 10/01/17 23:51 Pulse Ox 97 10/01/17 23:51 - Exam Constitutional: Present: Alert, Oriented x3, Cooperative, Mild distress ENT Exam: Present: hearing grossly normal Neck: Present: full range of motion Breasts: Present: Exam deferred Respiratory: Present: no accessory muscle use, rhonchi, expiration (prolonged) Cardiovascular/Chest: Present: normal peripheral pulses, regular rate, rhythm, no chest tenderness, no edema Abdomen: Present: guarding, rigidity, distended, hypoactive Extremity: Present: normal range of motion Skin Exam: Present: normal color, warm/dry Neurologic: Present: oriented x 3, other - left hand tremors Appearance: Present: appropriate appearance, appropriate insight Eye contact: Present: cooperative, good eye contact Assessment/Plan Plan Narrative: Abdominal distension (gaseous) Problem: Acute Narrative: pt report abdominal pain more than it was yesterday and no longer able to tolerate the FLD suspicious for partial small bowel obstruction Keeping NPO and getting X-ray ABD flat /upright Insert NGT COPD exacerbation Problem: Acute Narrative: pt have audible wheezing Reduce steroids to q12hrs. will change nebs to prn due to tremors. continue spiriva Chronic renal disease, stage 2, mildly decreased glomerular filtration rate between 60-89 mL/min/1.73 square meter Problem: Chronic Narrative: Cr improved with IVF. IVF was stop when pt was tolerating meals, however she is distended with abdominal pain will make NPO and resume IVF Dementia Problem: Chronic Qualifiers: Dementia type: unspecified type Dementia behavioral disturbance: without behavioral disturbance Qualified Code(s): F03.90 - Unspecified dementia without behavioral disturbance Pneumonia Problem: Acute Qualifiers: Pneumonia type: due to unspecified organism Laterality: unspecified laterality Lung location: unspecified part of lung Qualified Code(s): J18.9 - Pneumonia, unspecified organism Narrative: Continue with levaquin q48hrs. 750mg PO. Constipation, acute Problem: Acute Narrative: continue miralax, prn dulcolax supp. Weakness Problem: Acute Narrative: PT for strengthening. Pt. unable to walk very far. If no improvement in the next couple days then may need to go SNF to [place]. Discharge planning issues Problem: Acute Narrative: Since just resuming PO intake and with her weakness, anticipate that it will be at least until Friday before she will be discharged. Code status: DNR VTE ppx:SCD and ambulate with physical therapy and nurses GI ppx:Protonix Time 30 minutes and case discussed with Dr Baker - Problems/Diagnosis (1) Abdominal distension (gaseous) Problem: Acute (2) Pneumonia Problem: Acute Qualifiers: Pneumonia type: due to unspecified organism Laterality: unspecified laterality Lung location: unspecified part of lung Qualified Code(s): J18.9 - Pneumonia, unspecified organism (3) Chronic renal disease, stage 2, mildly decreased glomerular filtration rate between 60-89 mL/min/1.73 square meter Problem: Chronic (4) Moderate COPD (chronic obstructive pulmonary disease) Problem: Chronic (5) Acute on chronic diastolic CHF (congestive heart failure) Problem: Chronic (6) COPD exacerbation Problem: Acute (7) Hypothyroidism (acquired) Problem: Chronic
[2017-10-02] MEDS: PANTOPRAZOLE SODIUM 40 MG in NORMAL SALINE 50 ML IV SCH (09:53)
[2017-10-02] MEDS: FLUTICASONE/SALMETEROL 14 PUFF DISK.W.DEV IH SCH ×2 (09:56→20:29)
[2017-10-02] MEDS: TIOTROPIUM BROMIDE 5 CAP INHALER IH SCH (09:59)
[2017-10-02] MEDS: LEVOTHYROXINE SODIUM 88 MCG TABLET PO SCH (10:32)
[2017-10-02] MEDS: QUEtiapine FUMARATE 25 MG TABLET PO SCH (10:32)
[2017-10-02] MEDS: CLOPIDOGREL BISULFATE 75 MG TABLET PO SCH (10:32)
[2017-10-02] MEDS: ATENOLOL 25 MG TABLET PO SCH (10:32)
[2017-10-02] MEDS: POLYETHYLENE GLYCOL 3350 119 GM BTL PO SCH (10:32)
[2017-10-02] MEDS: MONTELUKAST SODIUM 10 MG TABLET PO SCH ×2 (10:32→20:28)
[2017-10-02 11:11] LABS: Albumin * 3.1 gm/dl (3.4-5.0); Anion Gap 13.4 mmol/L (6.8-13.8); BUN/Creatinine Ratio 17.4 (9.0-21.6); Bilirubin, Total 0.5 mg/dL (0.0-1.1); Ca. Corrected For Albumin 9.5 mg/dL (8.4-10.2); Calcium * 9.1 mg/dL (7.9-10.9); Carbon Dioxide 27.2 mmol/L (24-32.6); Potassium 3.6 mmol/L (3.4-4.6); Total Protein 7.7 gm/dL (6.2-8.2)
[2017-10-02] MEDS: LIDOCAINE HCL 20 ML UDC MM SCH ×4 (11:27→22:42)
[2017-10-02] MEDS: POTASSIUM CHLORIDE 20 MEQ in DEXTROSE 5%-0.5 NORMAL SALINE 990 ML IV SCH (15:23)
[2017-10-02] MEDS: ALBUTEROL SULFATE 2.5 MG/0.5 ML VIAL.NEB IH SCH (18:30)
[2017-10-02] MEDS: BUDESONIDE 0.5 MG/2 ML VIAL.NEB IH SCH (18:33)
[2017-10-02] MEDS: SENNOSIDES 8.6 MG TABLET PO SCH (20:29)
[2017-10-02] MEDS: BISACODYL 10 MG SUPP.RECT RC SCH (20:29)
[2017-10-03] MEDS: ALBUTEROL SULFATE 2.5 MG/0.5 ML VIAL.NEB IH SCH ×4 (00:36→18:07)
[2017-10-03] MEDS: POTASSIUM CHLORIDE 20 MEQ in DEXTROSE 5%-0.5 NORMAL SALINE 990 ML IV SCH ×3 (01:15→23:12)
[2017-10-03] MEDS: LIDOCAINE HCL 20 ML UDC MM SCH ×6 (01:59→23:37)
[2017-10-03] MEDS ORDERED: METHYLPREDNISOLONE SOD SUCC 60 MG in WATER FOR INJ.,BACTERIOSTATIC 0 ML IV SCH (03:00)
[2017-10-03] MEDS: METHYLPREDNISOLONE SOD SUCC 60 MG in WATER FOR INJ.,BACTERIOSTATIC 0 ML IV SCH (03:04)
[2017-10-03] MEDS: BUDESONIDE 0.5 MG/2 ML VIAL.NEB IH SCH ×2 (06:38→18:07)
--- NOTE | 2017-10-03 07:09 | PN ---
Subjective - Date and Time Seen Date: 10/03/17 Time: 07:00 Subjective Narrative: Pt. denies flatus or BM, she does state her stomach doesn't hurt as much as yesterday. Objective - Review of Systems Generalized/Overall Review: Reports: Weakness. Denies: Chills, Fever EENTM: Reports: No Symptoms Reported Respiratory: Reports: Cough. Denies: Shortness of Breath Cardiac: Reports: No Symptoms Reported Abdominal: Reports: Abdominal Pain. Denies: Nausea, Vomiting Genitourinary Symptoms: Reports: No Symptoms Reported Musculoskeletal Complaints: Reports: No Symptoms Reported Neurological: Reports: Weakness Skin: Reports: No Symptoms Reported Endocrine: Reports: No Symptoms Reported - Vitals Vitals: Last Vital Signs Temp 36.1 C L 10/02/17 23:42 Pulse 84 10/03/17 06:38 Resp 22 H 10/03/17 06:38 BP 158/64 10/02/17 23:42 Pulse Ox 91 10/03/17 06:38 - Abnormal Lab Findings Abnormal Lab Findings: Abnormal Lab Results 10/02/17 Range/Units 10:50 Est GFR (Non-Af Amer) 48 L (60-130) mL/min Random Glucose 139 H D (70-110) mg/dL ALT 17 L (19-67) U/L Albumin 3.1 L (3.4-5.0) gm/dl - Exam Constitutional: Present: Alert, Oriented x3, Cooperative, Mild distress, Elderly ENT Exam: Present: hearing grossly normal Neck: Present: supple Respiratory: Present: no respiratory distress, no accessory muscle use, rhonchi , wheezing, expiration (prolonged) Cardiovascular/Chest: Present: regular rate, rhythm, systolic murmur Abdomen: Present: distended, no bowel sounds. Absent: tender, guarding, rigidity, rebound tenderness Extremity: Present: no calf tenderness Skin Exam: Present: normal color Neurologic: Present: normal mood/affect Appearance: Present: appropriate appearance, appropriate insight Eye contact: Present: cooperative, good eye contact, normal speech Thoughts: Present: normal thought pattern, no apparent hallucination Assessment/Plan - Problems/Diagnosis (1) COPD exacerbation Problem: Acute Narrative: stable but not to baseline. continue steroids but will change once day dosing. start prednisone taper when taking PO. (2) Chronic renal disease, stage 2, mildly decreased glomerular filtration rate between 60-89 mL/min/1.73 square meter Problem: Chronic Narrative: stable, no changes. IVF since NPO. (3) respiratory failure hypoxemia acute Problem: Resolved (4) Dementia Problem: Chronic Qualifiers: Dementia type: unspecified type Dementia behavioral disturbance: without behavioral disturbance Qualified Code(s): F03.90 - Unspecified dementia without behavioral disturbance Narrative: stable (5) Pneumonia Problem: Acute Qualifiers: Pneumonia type: due to unspecified organism Laterality: unspecified laterality Lung location: unspecified part of lung Qualified Code(s): J18.9 - Pneumonia, unspecified organism Narrative: q48hr levaquin (6) Abdominal distension (gaseous) Problem: Acute Narrative: SBO. has had copious amounts out through NGT. Will continue for now until outpt is minimal and BM, Flatus and BS are present. (7) Constipation, acute Problem: Chronic (8) Weakness Problem: Acute Narrative: continue PT. (9) Partial small bowel obstruction Problem: Acute Narrative: has had copious amounts out through NGT. Will continue for now until outpt is minimal and BM, Flatus and BS are present. will ambulate as much as possible, clamping tube while walking to see if we can't spur things along, especially since she states pain is minimal. (10) Discharge planning issues Problem: Acute Narrative: anticipate her being here through the weekend given the SBO and needing NGT probably for at least a couple more days, but will need to have tube out and taking PO before discharge.
[2017-10-03] MEDS: LEVOTHYROXINE SODIUM 88 MCG TABLET PO SCH (07:15)
[2017-10-03] MEDS: PANTOPRAZOLE SODIUM 40 MG in NORMAL SALINE 50 ML IV SCH (07:25)
[2017-10-03] MEDS: CLOPIDOGREL BISULFATE 75 MG TABLET PO SCH (09:49)
[2017-10-03] MEDS: POLYETHYLENE GLYCOL 3350 119 GM BTL PO SCH (09:49)
[2017-10-03] MEDS: QUEtiapine FUMARATE 25 MG TABLET PO SCH (09:49)
[2017-10-03] MEDS: ATENOLOL 25 MG TABLET PO SCH (09:50)
[2017-10-03] MEDS: TIOTROPIUM BROMIDE 5 CAP INHALER IH SCH (09:51)
[2017-10-03] MEDS: BISACODYL 10 MG SUPP.RECT RC SCH (09:51)
[2017-10-03] MEDS: FLUTICASONE/SALMETEROL 14 PUFF DISK.W.DEV IH SCH ×2 (09:51→20:12)
[2017-10-03] MEDS: LEVOFLOXACIN IN DEXTROSE 5 % 750 MG/150 ML BAG IV SCH (10:09)
[2017-10-03] MEDS: MONTELUKAST SODIUM 10 MG TABLET PO SCH (19:02)
--- NOTE | 2017-10-03 19:36 | CONS ---
[facility] - General Date of Service: 10/03/17 Source: patient, RN/, RN notes reviewed, old records Exam Limitations: no limitations - History of Present Illness Initial Comments: The patient states she got the flu. She usually takes MiraLAX for her bowels but she stopped. She then developed abdominal distention and vomiting. She was admitted and a nasogastric tube was placed yesterday with a large initial output. I saw the patient yesterday and adjusted the nasogastric tube which is working better. She has had a bowel movement today after a suppository. He has a history of a right hemicolectomy for cancer. Colonoscopy last spring revealed severe diverticulosis but was otherwise normal to the small bowel to colon anastomosis. The patient does have increased small bowel gas on previous x-rays. She has also been very short of breath with wheezing Severity: moderate Associated Symptoms: cough, shortness of breath Allergies/Adverse Reactions: Allergies ceftriaxone sodium [From Rocephin] Allergy (Mild, Verified 09/29/17 07:28) SWELLING Home Medications: Home Medications Medication Instructions Recorded Last Taken Acetaminophen [Tylenol] 325 mg PO Q4H PRN 03/18/16 Unknown Albuterol Sulfate [Proair Hfa] 1 - 2 puff IH Q4H PRN 03/18/16 Unknown Atenolol [Tenormin] 25 mg PO DAILY 03/18/16 Unknown Baclofen 10 mg PO TID 03/18/16 Unknown Clopidogrel Bisulfate [Plavix] 75 mg PO DAILY 03/18/16 Unknown Folic Acid 1 mg PO DAILY 03/18/16 Unknown Gabapentin 300 mg PO TID 03/18/16 Unknown Levothyroxine Sodium [Synthroid] 88 mcg PO DAILY 03/18/16 Unknown Meloxicam [Mobic] 15 mg PO DAILY PRN 03/18/16 Unknown Montelukast Sodium [Singulair] 10 mg PO DAILY 03/18/16 Unknown Potassium Chloride [Klor-Con 10] 10 meq PO DAILY 03/18/16 Unknown QUEtiapine FUMARATE [Seroquel] 25 mg PO DAILY 03/18/16 Unknown Tiotropium [place] [Spiriva] 1 cap IH DAILY 03/18/16 Unknown traMADol HCL [Ultram] 50 mg PO Q6H PRN 03/18/16 Unknown Albuterol Sulfate [Albuterol 2.5 mg IH QID 10/08/16 Unknown Sulfate 2.5 MG/3 ML] Docusate Sodium [Colace] 100 mg PO BID 10/08/16 Unknown Polyethylene Glycol 3350 [Miralax] 17 gm PO BID 10/08/16 Unknown Sennosides [Senokot] 17.2 mg PO HS 10/08/16 Unknown l Acidophil/B Lactis/B Longum 460 mg PO DAILY 10/08/16 Unknown [Florajen3 Capsule] Cholecalciferol (Vitamin D3) 1,000 unit PO DAILY 09/29/17 Unknown [Vitamin D3] Fluticasone/Salmeterol [Advair 1 puff IH BID 09/29/17 Unknown 250-50 Diskus] - Patient's Past Medical History Patient History - Medical: Anemia, Dementia, Depression, Fibromyalgia, GERD, Hypothyroidism, Liver Disease, Renal Failure, Other Patient History - Cardiac/Respiratory: Atrial Fibrillation, Coronary Heart Disease, COPD, CVA/Stroke, Hypertension Patient History - Cancer: Colon, Surgical Treatment Patient History - Surgical Procedures: Appendectomy, Colon Resection, Colonoscopy, T & A, Other Patient History - Other: None LMP (females 10-50): Menopausal - Family History Family History:: no untoward family reactions to anesthesia, no familial bleeding tendencies, no family history of clotting disorders, no family history of premature - Family History Children Family History - Medical: No pertinent hx Family History - Cardiac/Respiratory: No pertinent hx Family History - Cancer: Breast Father Family History - Medical: , No pertinent hx Family History - Cardiac/Respiratory: Coronary Heart Disease, CHF Family History - Cancer: No pertinent family hx Grandmother-Maternal Family History - Medical: , No pertinent hx Family History - Cardiac/Respiratory: No pertinent hx Family History - Cancer: Breast Sister Family History - Medical: , Other Family History - Cardiac/Respiratory: No pertinent hx Family History - Cancer: No pertinent family hx Mother Family History - Medical: , No pertinent hx, Other Family History - Cardiac/Respiratory: No pertinent hx Family History - Cancer: No pertinent family hx - Social History Living Situations: assisted living Abuse History: No History of abuse Psych History: No pertinent hx Smoking Status: Former smoker Have you smoked in the past 12 months: No Do you dip or chew tobacco: No Patient requests Smoking Cessation Consult: No Initiate information on Smoking Cessation: No Alcohol Use: none Drug Use: none - Immunizations Immunizations Up to Date: No Hx Pneumococcal Vaccination: No History of Influenza Vaccine: No Procedures APPLICATION OF SPLINT (09/08/07) ARTERIAL BLD GAS MEASURE (10/08/14) CLOSED ENDOSCOPIC BIOPSY OF LARGE INTESTINE (08/28/99) COLONOSCOPY (10/14/02) DEBRID OPN FX-FINGER (06/24/04) ENDOSC POLYPECTOMY OF LG INTEST (10/06/09) HUMERUS DIVISION NEC (02/22/08) INCIS W REM OF FORIEGN BODY OR DEV FROM SKIN & SUBCUT TISSUE (10/14/02) INSPECTION OF LOWER INTESTINAL TRACT, ENDO (10/21/16) MEASURE OF ARTERIAL SATURATION, PERIPHERAL, PERC APPROACH (09/29/17) OPEN RED-INT FIX FINGER (06/24/04) OPEN RED-INT FIX HUMERUS (02/22/08) PARTIAL HUMERECTOMY NEC (09/19/08) REMOVE INT FIX-HUMERUS (09/19/08) SOFT TISSUE DIVISION NEC (09/19/08) Medications - Medications Current Medications: Current Medications Acetaminophen (Tylenol) 650 mg PO Q6H PRN PRN Reason: Mild pain (pain scale 1-3) Stop: 10/29/17 22:57 Last Admin: 10/01/17 07:50 Dose: 650 mg Albuterol Sulfate (Albuterol Sulfate 2.5 Mg/0.5ml) 2.5 mg IH Q4H PRN PRN Reason: sob, wheezing Stop: 10/31/17 08:21 Last Admin: 10/02/17 10:27 Dose: 2.5 mg Albuterol Sulfate (Albuterol Sulfate 2.5 Mg/0.5ml) 2.5 mg IH Q6HRT [facility] Stop: 11/01/17 19:01 Last Admin: 10/03/17 18:07 Dose: 2.5 mg Atenolol (Tenormin) 25 mg PO DAILY [facility] Stop: 10/31/17 09:01 Last Admin: 10/03/17 09:50 Dose: Not Given Bisacodyl (Dulcolax Suppository) 10 mg RC DAILY [facility] Stop: 11/01/17 19:01 Last Admin: 10/03/17 09:51 Dose: 10 mg Budesonide (Pulmicort Respules) 0.5 mg IH BIDRT [facility] Stop: 11/01/17 19:01 Last Admin: 10/03/17 18:07 Dose: 0.5 mg Clopidogrel Bisulfate (Plavix) 75 mg PO DAILY [facility] Stop: 10/31/17 09:01 Last Admin: 10/03/17 09:49 Dose: Not Given Levofloxacin/Dextrose (Levaquin) 750 mg in 150 mls @ 100 mls/hr IV Q48H [facility] PRN Reason: Protocol Stop: 10/31/17 09:01 Last Admin: 10/03/17 10:09 Dose: 100 mls/hr Pantoprazole Sodium 40 mg/ (Sodium Chloride) 50 mls @ 200 mls/hr IV Q24H [facility] Stop: 11/01/17 07:31 Last Infusion: 10/03/17 07:40 Dose: Infused Potassium Chloride 20 meq/ (Dextrose/Sodium Chloride) 1,000 mls @ 100 mls/hr IV .Q10H [facility] Stop: 11/01/17 14:31 Last Admin: 10/03/17 13:00 Dose: 100 mls/hr Levothyroxine Sodium (Synthroid) 88 mcg PO 0700 [facility] Stop: 10/30/17 15:46 Last Admin: 10/03/17 07:15 Dose: Not Given Lidocaine HCl (Lidocaine Hcl Viscous 2%) 20 ml MM Q4H [facility] Stop: 11/01/17 11:01 Last Admin: 10/03/17 19:01 Dose: Not Given Montelukast Sodium (Singulair) 10 mg PO 1900 [facility] Stop: 11/01/17 19:01 Last Admin: 10/03/17 19:02 Dose: Not Given Polyethylene Glycol (Miralax) 17 gm PO DAILY [facility] Stop: 10/30/17 07:01 Last Admin: 10/03/17 09:49 Dose: Not Given Quetiapine Fumarate (Seroquel) 25 mg PO DAILY [facility] Stop: 10/30/17 21:01 Last Admin: 10/03/17 09:49 Dose: Not Given Fluticasone/Salmeterol (Advair 250-50 Diskus) 1 puff IH BID [facility] Stop: 10/30/17 21:01 Last Admin: 10/03/17 09:51 Dose: 1 puff [place]na (Senokot) 17.2 mg PO HS [facility] Stop: 10/30/17 21:01 Last Admin: 10/02/17 20:29 Dose: Not Given Tiotropium [place] (Spiriva) 1 cap IH DAILY [facility] Stop: 10/30/17 15:16 Last Admin: 10/03/17 09:51 Dose: 1 cap Review of Systems - Review of Systems Generalized/Overall Review: Present: Weakness, Fatigue. Absent: Chills, Fever EENTM: Present: Other - discomfort from the nasogastric tube Respiratory: Present: Cough, Shortness of Breath, Wheezing Cardiac: Present: No Symptoms Reported Abdominal: Present: Other - She has not vomited and only had a little over 400 mL out of her NG tube today. Her abdomen is still distended but not as painful or tender Genitourinary: Present: No Symptoms Reported Musculoskeletal: Present: No Symptoms Reported Neurological: Present: Other - Mild dementia Skin: Present: Dryness, Bruising Physical Examination - Exam Vital Signs: Vital Signs - Last Taken Temp 36.6 C 10/03/17 11:36 Pulse 86 10/03/17 18:17 Resp 20 10/03/17 18:17 BP 154/76 10/03/17 11:36 Pulse Ox 94 10/03/17 18:07 O2 Oxygen Delivery Method Room Air - Results and Findings: Narrative: X-ray of the abdomen yesterday revealed nonspecific bowel gas pattern suggesting ileus versus early small bowel obstruction although there was gas in the colon. The nasogastric tube was coiled in the stomach however has been withdrawn. - Assessments/Findings (1) Abdominal distension (gaseous) Diagnosis(s): The high nasogastric tube output initially suggested small bowel obstruction however the patient has passed gas and moved her bowels. Whether she does have partial small bowel obstruction from adhesions from her previous surgery, or an ileus related to her respiratory problem and air swallowing with underlying constipation is unclear. She would be high risk for any operative procedure such as lysis of adhesions in light of her recent respiratory difficulties so continued trial of nasogastric suction is in order. The use of Gastrografin for a CT scan may be helpful both diagnostically and therapeutically. We'll discuss the case further with Dr. Baker Problem: Acute
[2017-10-03] MEDS: SENNOSIDES 8.6 MG TABLET PO SCH (20:12)
[2017-10-03] MEDS ORDERED: KETOROLAC TROMETHAMINE 15 MG/ML VIAL IV ONE (22:22)
[2017-10-04] MEDS: ALBUTEROL SULFATE 2.5 MG/0.5 ML VIAL.NEB IH SCH ×4 (00:05→18:38)
[2017-10-04] MEDS: LIDOCAINE HCL 20 ML UDC MM SCH ×5 (02:17→18:56)
[2017-10-04] MEDS: METHYLPREDNISOLONE SOD SUCC 60 MG in WATER FOR INJ.,BACTERIOSTATIC 0 ML IV SCH (03:04)
[2017-10-04] MEDS: BUDESONIDE 0.5 MG/2 ML VIAL.NEB IH SCH ×2 (06:17→18:39)
[2017-10-04] MEDS: PANTOPRAZOLE SODIUM 40 MG in NORMAL SALINE 50 ML IV SCH (07:56)
[2017-10-04] MEDS: LEVOTHYROXINE SODIUM 88 MCG TABLET PO SCH (07:56)
--- NOTE | 2017-10-04 08:20 | PN ---
Subjective - Date and Time Seen Date: 10/04/17 Time: 08:08 Subjective Narrative: Pt. complaining of wanting the NGT out this am, pleading for it to be taken out. States no one will walk her very far, but that she's willing to do so. States she feels like she's in snf. had 1 bm, but denies flatus Objective Objective Narrative: NGT outpt. 900, 200 already this am. - Review of Systems Generalized/Overall Review: Reports: No Symptoms Reported EENTM: Reports: No Symptoms Reported Respiratory: Reports: No Symptoms Reported Cardiac: Reports: No Symptoms Reported Abdominal: Reports: No Symptoms Reported, Constipation. Denies: Abdominal Pain Genitourinary Symptoms: Reports: No Symptoms Reported Musculoskeletal Complaints: Reports: No Symptoms Reported Neurological: Reports: No Symptoms Reported Skin: Reports: No Symptoms Reported Endocrine: Reports: No Symptoms Reported - Vitals Vitals: Last Vital Signs Temp 36.8 C 10/04/17 00:48 Pulse 83 10/04/17 06:27 Resp 20 10/04/17 06:27 BP 150/77 10/04/17 00:48 Pulse Ox 94 10/04/17 06:17 - Exam Constitutional: Present: Alert, Cooperative, Mild distress, Elderly ENT Exam: Present: hearing grossly normal Neck: Present: supple Respiratory: Present: no respiratory distress, no accessory muscle use, rhonchi - del but improved Cardiovascular/Chest: Present: regular rate, rhythm, systolic murmur Abdomen: Present: Normal bowel sounds, soft, nontender, no rebound tenderness, no hepatospenomegaly, distended - very distended and tympanitic.. Absent: guarding, rigidity Extremity: Present: no pedal edema, no calf tenderness Skin Exam: Present: normal color Neurologic: Present: normal mood/affect, disoriented x 3 Appearance: Present: neat, impaired insight, impaired recent memory Eye contact: Present: cooperative, good eye contact Thoughts: Present: paranoid Assessment/Plan - Problems/Diagnosis (1) COPD exacerbation Problem: Acute Narrative: improved. IV steroids and neb tx, levaquin. (2) Chronic renal disease, stage 2, mildly decreased glomerular filtration rate between 60-89 mL/min/1.73 square meter Problem: Chronic Narrative: stable no changes, continue IVF. Check bmp in am. (3) respiratory failure hypoxemia acute Problem: Resolved (4) Dementia Problem: Chronic Qualifiers: Dementia type: unspecified type Dementia behavioral disturbance: without behavioral disturbance Qualified Code(s): F03.90 - Unspecified dementia without behavioral disturbance (5) Pneumonia Problem: Acute Qualifiers: Pneumonia type: due to unspecified organism Laterality: unspecified laterality Lung location: unspecified part of lung Qualified Code(s): J18.9 - Pneumonia, unspecified organism Narrative: improving, continue levaquin. (6) Abdominal distension (gaseous) Problem: Acute (7) Constipation, acute Problem: Chronic (8) Weakness Problem: Acute Narrative: ambulate in halls QI with assistance. continue PT. (9) Partial small bowel obstruction Problem: Acute Narrative: continue NGT for now until outpt is minimal, abdominal distension is reduced and she is having bm and more flatus. (10) Discharge planning issues Problem: Acute Narrative: cannot discharge until NGT is out, pt. on diet.
[2017-10-04] MEDS: POLYETHYLENE GLYCOL 3350 119 GM BTL PO SCH (09:46)
[2017-10-04] MEDS: CLOPIDOGREL BISULFATE 75 MG TABLET PO SCH (09:46)
[2017-10-04] MEDS: ATENOLOL 25 MG TABLET PO SCH (09:47)
[2017-10-04] MEDS: QUEtiapine FUMARATE 25 MG TABLET PO SCH (09:47)
[2017-10-04] MEDS: FLUTICASONE/SALMETEROL 14 PUFF DISK.W.DEV IH SCH ×2 (09:48→20:46)
[2017-10-04] MEDS: POTASSIUM CHLORIDE 20 MEQ in DEXTROSE 5%-0.5 NORMAL SALINE 990 ML IV SCH ×2 (09:51→18:59)
[2017-10-04] MEDS: TIOTROPIUM BROMIDE 5 CAP INHALER IH SCH (09:53)
[2017-10-04] MEDS: BISACODYL 10 MG SUPP.RECT RC SCH (09:53)
[2017-10-04] MEDS: MONTELUKAST SODIUM 10 MG TABLET PO SCH (18:56)
[2017-10-04] MEDS: SENNOSIDES 8.6 MG TABLET PO SCH (20:35)
[2017-10-05] MEDS: ALBUTEROL SULFATE 2.5 MG/0.5 ML VIAL.NEB IH SCH ×4 (00:05→18:03)
[2017-10-05] MEDS: LIDOCAINE HCL 20 ML UDC MM SCH ×7 (00:58→22:03)
[2017-10-05] MEDS: METHYLPREDNISOLONE SOD SUCC 60 MG in WATER FOR INJ.,BACTERIOSTATIC 0 ML IV SCH (03:19)
[2017-10-05] MEDS: POTASSIUM CHLORIDE 20 MEQ in DEXTROSE 5%-0.5 NORMAL SALINE 990 ML IV SCH ×2 (04:43→17:30)
[2017-10-05 05:07] LABS: Hematocrit 38.4 % (37.0-47.0); Hemoglobin 13.1 gm/dL (12.5-16.0); Mean Cell Volume 87.3 fl (78-100); Mean Corpuscular Hemoglobin 29.8 pg (27-31); Mean Corpuscular Hgb Conc 34.1 g/dl (32-36); Mean Platelet Volume 11.3 fl (6.0-9.5); Neutrophil # 3.7 K/mm3 (1.3-6.0); Neutrophil % 68.1 % (42-75.0); Platelet Count 260 K/mm3 (150-450); White Blood Count 5.4 K/mm3 (4.0-10.5)
[2017-10-05] MEDS: BUDESONIDE 0.5 MG/2 ML VIAL.NEB IH SCH ×2 (06:23→18:04)
[2017-10-05] MEDS: PANTOPRAZOLE SODIUM 40 MG in NORMAL SALINE 50 ML IV SCH (09:01)
[2017-10-05] MEDS: LEVOFLOXACIN IN DEXTROSE 5 % 750 MG/150 ML BAG IV SCH (09:02)
[2017-10-05] MEDS: FLUTICASONE/SALMETEROL 14 PUFF DISK.W.DEV IH SCH ×2 (09:04→22:03)
[2017-10-05] MEDS: LEVOTHYROXINE SODIUM 88 MCG TABLET PO SCH (09:05)
[2017-10-05] MEDS: POLYETHYLENE GLYCOL 3350 119 GM BTL PO SCH (09:05)
[2017-10-05] MEDS: CLOPIDOGREL BISULFATE 75 MG TABLET PO SCH (09:06)
[2017-10-05] MEDS: QUEtiapine FUMARATE 25 MG TABLET PO SCH (09:06)
[2017-10-05] MEDS: TIOTROPIUM BROMIDE 5 CAP INHALER IH SCH (09:06)
[2017-10-05] MEDS: BISACODYL 10 MG SUPP.RECT RC SCH (09:07)
[2017-10-05] MEDS: ATENOLOL 25 MG TABLET PO SCH (09:07)
[2017-10-05] MEDS ORDERED: DIATRIZOATE MEGLUMINE, SODIUM 30 ML BTL PO ONE (10:29)
--- NOTE | 2017-10-05 11:04 | PN ---
Subjective - Date and Time Seen Date: 10/05/17 Time: 10:58 Subjective Narrative: Pt. complaining of wanting the NGT out this am, pleading for it to be taken out. States she is walking, passing flatus and having BM. Denies abdominal pain. Objective - Review of Systems Generalized/Overall Review: Reports: No Symptoms Reported EENTM: Reports: No Symptoms Reported Respiratory: Reports: Cough, Shortness of Breath - NEW noted by nursing when ambulating., Wheezing Cardiac: Reports: No Symptoms Reported Abdominal: Reports: No Symptoms Reported Genitourinary Symptoms: Reports: No Symptoms Reported Musculoskeletal Complaints: Reports: No Symptoms Reported Neurological: Reports: Weakness Skin: Reports: No Symptoms Reported Endocrine: Reports: No Symptoms Reported - Vitals Vitals: Last Vital Signs Temp 36.8 C 10/05/17 10:22 Pulse 102 H 10/05/17 10:22 Resp 24 H 10/05/17 10:22 BP 168/82 10/05/17 10:22 Pulse Ox 96 10/05/17 10:22 - Abnormal Lab Findings Abnormal Lab Findings: Abnormal Lab Results 10/05/17 Range/Units 05:04 MPV 11.3 H (6.0-9.5) fl Immature Gran % (Auto) 1.70 H (0.001-0.429) % Immature Gran # (Auto) 0.09 H (0.000-0.0310) K/mm3 Lymphocytes # 1.1 L (1.5-3.5) k/mm3 - Exam Constitutional: Present: Alert, Oriented x3, Cooperative, Mild distress ENT Exam: Present: hearing grossly normal Neck: Present: supple Respiratory: Present: no respiratory distress, no accessory muscle use, rhonchi , wheezing Cardiovascular/Chest: Present: regular rate, rhythm, no murmur Abdomen: Present: soft, nontender, no hepatospenomegaly, no masses, distended - not tense as previous. Extremity: Present: no pedal edema, no calf tenderness Skin Exam: Present: normal color Neurologic: Present: normal mood/affect, oriented x 3 Appearance: Present: appropriate appearance, appropriate insight, neat Eye contact: Present: cooperative, good eye contact, normal speech Thoughts: Present: normal thought pattern, no apparent hallucination Assessment/Plan - Problems/Diagnosis (1) COPD exacerbation Problem: Acute Narrative: stable, continue solumedrol, nebs, levaquin (2) Chronic renal disease, stage 2, mildly decreased glomerular filtration rate between 60-89 mL/min/1.73 square meter Problem: Chronic Narrative: continue levaquin q48hrs. (3) respiratory failure hypoxemia acute Problem: Resolved (4) Dementia Problem: Chronic Qualifiers: Dementia type: unspecified type Dementia behavioral disturbance: without behavioral disturbance Qualified Code(s): F03.90 - Unspecified dementia without behavioral disturbance Narrative: stable, has good periods of lucidity, but has bizarre thoughts at times (5) Pneumonia Problem: Acute Qualifiers: Pneumonia type: due to unspecified organism Laterality: unspecified laterality Lung location: unspecified part of lung Qualified Code(s): J18.9 - Pneumonia, unspecified organism Narrative: improving, continue levaquin (6) Abdominal distension (gaseous) Problem: Acute (7) Constipation, acute Problem: Chronic (8) Weakness Problem: Acute (9) Partial small bowel obstruction Problem: Acute Narrative: Abdominal xray and NGT outpt still isn't promising so will get CT as this may be both diagnostic and therapeutic. explained to pt. that if the CT shows ileus and not obstruction, we can remove NGT and continue to walk her and slowly advance diet. (10) Discharge planning issues Problem: Acute Narrative: hopefully will be able to move more toward discharge, but have to have NGT out and on po for min. 24hrs without issues prior to discharge.
--- NOTE | 2017-10-05 13:32 | PN ---
Dictated Progress Note - Date and Time Seen: Date: 10/05/17 Time: 13:31 - Progress Note Narrative: Vital Signs - Last Taken Temp 36.8 C 10/05/17 10:22 Pulse 102 H 10/05/17 10:22 Resp 24 H 10/05/17 10:22 BP 168/82 10/05/17 10:22 Pulse Ox 96 10/05/17 10:22 Abnormal/Pending Laboratory Last 24 HRS 10/05/17 05:04 MPV 11.3 H Immature Gran % (Auto) 1.70 H Immature Gran # (Auto) 0.09 H Lymphocytes # 1.1 L Her white blood cell count has returned to normal. She has passed gas to move her bowels. There was less NG output (125 mL) CT scan of the abdomen and pelvis reveals diffuse small and large bowel dilation with no jerome obstructive point. Recommendation: Would continue NG suction and observe for passage of contrast
[2017-10-05] MEDS: SENNOSIDES 8.6 MG TABLET PO SCH (22:03)
[2017-10-05] MEDS: MONTELUKAST SODIUM 10 MG TABLET PO SCH (22:03)
[2017-10-06] MEDS: ALBUTEROL SULFATE 2.5 MG/0.5 ML VIAL.NEB IH SCH ×4 (00:17→18:30)
[2017-10-06] MEDS: METHYLPREDNISOLONE SOD SUCC 60 MG in WATER FOR INJ.,BACTERIOSTATIC 0 ML IV SCH (02:53)
[2017-10-06] MEDS: LIDOCAINE HCL 20 ML UDC MM SCH ×5 (02:53→22:15)
[2017-10-06] MEDS: POTASSIUM CHLORIDE 20 MEQ in DEXTROSE 5%-0.5 NORMAL SALINE 990 ML IV SCH ×3 (02:55→23:08)
[2017-10-06] MEDS ORDERED: ONDANSETRON HCL/PF 2 MG/ML VIAL IV PRN (03:15)
[2017-10-06] MEDS ORDERED: METOCLOPRAMIDE HCL 5 MG/ML VIAL IV ONE (07:01)
--- NOTE | 2017-10-06 07:17 | PN ---
Subjective - Date and Time Seen Date: 10/06/17 Time: 07:13 Subjective Narrative: She has no complaints this am except wants the NGT out. Nursing reports abdomen is more distended, but no pain reported by pt. No BM since contrast given. Objective - Review of Systems Generalized/Overall Review: Reports: Weakness EENTM: Reports: No Symptoms Reported Respiratory: Reports: Cough Cardiac: Reports: No Symptoms Reported Abdominal: Denies: Nausea, Vomiting, Hematemesis, Abdominal Pain, Constipation, Diarrhea Genitourinary Symptoms: Reports: No Symptoms Reported Musculoskeletal Complaints: Reports: No Symptoms Reported Neurological: Reports: No Symptoms Reported Skin: Reports: No Symptoms Reported Endocrine: Reports: No Symptoms Reported - Vitals Vitals: Last Vital Signs Temp 36.8 C 10/06/17 03:00 Pulse 78 10/06/17 03:00 Resp 20 10/06/17 03:00 BP 171/62 10/06/17 03:00 Pulse Ox 90 10/06/17 03:00 - Exam Constitutional: Present: Alert, Cooperative, No distress, Elderly ENT Exam: Present: hearing grossly normal Neck: Present: supple Respiratory: Present: no respiratory distress, no accessory muscle use, rhonchi Cardiovascular/Chest: Present: regular rate, rhythm Abdomen: Present: firm, distended, high pitched bowel sounds. Absent: tender, guarding, rigidity Extremity: Present: no calf tenderness Skin Exam: Present: normal color Neurologic: Present: normal mood/affect Appearance: Present: appropriate appearance, appropriate insight, neat Eye contact: Present: cooperative, good eye contact, normal speech Thoughts: Present: normal thought pattern, no apparent hallucination Assessment/Plan - Problems/Diagnosis (1) COPD exacerbation Problem: Acute Narrative: stable no changes in meds. (2) Chronic renal disease, stage 2, mildly decreased glomerular filtration rate between 60-89 mL/min/1.73 square meter Problem: Chronic (3) respiratory failure hypoxemia acute Problem: Resolved (4) Dementia Problem: Chronic Qualifiers: Dementia type: unspecified type Dementia behavioral disturbance: without behavioral disturbance Qualified Code(s): F03.90 - Unspecified dementia without behavioral disturbance (5) Pneumonia Problem: Acute Qualifiers: Pneumonia type: due to unspecified organism Laterality: unspecified laterality Lung location: unspecified part of lung Qualified Code(s): J18.9 - Pneumonia, unspecified organism (6) Abdominal distension (gaseous) Problem: Acute Narrative: from ileus not SBO per CT. Still she is more distended this am than yesterday. Could be due to air swallowing from COPD. continue use of cornet. will do reglan this am x 1 dose. have her ambulate as much as possible today. will reassess at noon for possible NGT removal, but she is definitely worse than yesterday. (7) Constipation, acute Problem: Chronic (8) Weakness Problem: Acute (9) Partial small bowel obstruction Problem: Acute (10) Discharge planning issues Problem: Acute Narrative: cannot discharge until NGT is out and tolerating PO.
[2017-10-06] MEDS: BUDESONIDE 0.5 MG/2 ML VIAL.NEB IH SCH ×2 (07:22→18:30)
[2017-10-06] MEDS: LEVOTHYROXINE SODIUM 88 MCG TABLET PO SCH (07:39)
[2017-10-06] MEDS: PANTOPRAZOLE SODIUM 40 MG in NORMAL SALINE 50 ML IV SCH (07:39)
[2017-10-06] MEDS: POLYETHYLENE GLYCOL 3350 119 GM BTL PO SCH (08:53)
[2017-10-06] MEDS: FLUTICASONE/SALMETEROL 14 PUFF DISK.W.DEV IH SCH ×2 (08:53→22:15)
[2017-10-06] MEDS: BISACODYL 10 MG SUPP.RECT RC SCH ×2 (08:54→22:16)
[2017-10-06] MEDS: TIOTROPIUM BROMIDE 5 CAP INHALER IH SCH (08:54)
[2017-10-06] MEDS: CLOPIDOGREL BISULFATE 75 MG TABLET PO SCH (08:54)
[2017-10-06] MEDS: QUEtiapine FUMARATE 25 MG TABLET PO SCH (08:54)
[2017-10-06] MEDS: ATENOLOL 25 MG TABLET PO SCH (08:54)
[2017-10-06] MEDS ORDERED: ENALAPRILAT DIHYDRATE 2.5 MG/2 ML VIAL IV ONE (09:45)
[2017-10-06] MEDS: METOCLOPRAMIDE HCL 5 MG/5 ML BTL PO SCH ×2 (15:53→22:14)
[2017-10-06] MEDS: MONTELUKAST SODIUM 10 MG TABLET PO SCH (22:15)
[2017-10-06] MEDS: SENNOSIDES 8.6 MG TABLET PO SCH (22:16)
[2017-10-07] MEDS: ALBUTEROL SULFATE 2.5 MG/0.5 ML VIAL.NEB IH SCH ×4 (00:06→18:22)
[2017-10-07] MEDS: LIDOCAINE HCL 20 ML UDC MM SCH ×6 (01:57→20:55)
[2017-10-07] MEDS: METHYLPREDNISOLONE SOD SUCC 60 MG in WATER FOR INJ.,BACTERIOSTATIC 0 ML IV SCH (03:14)
[2017-10-07] MEDS: METOCLOPRAMIDE HCL 5 MG/5 ML BTL PO SCH ×4 (03:15→20:56)
[2017-10-07 06:39] LABS: Albumin * 2.7 gm/dl (3.4-5.0); Anion Gap 11.6 mmol/L (6.8-13.8); BUN/Creatinine Ratio 6.8 (9.0-21.6); Bilirubin, Total 0.4 mg/dL (0.0-1.1); Ca. Corrected For Albumin 8.4 mg/dL (8.4-10.2); Calcium * 7.7 mg/dL (7.9-10.9); Carbon Dioxide 28.1 mmol/L (24-32.6); Potassium 3.7 mmol/L (3.4-4.6)
--- NOTE | 2017-10-07 06:46 | PN ---
Subjective - Date and Time Seen Date: 10/07/17 Time: 06:42 Subjective Narrative: Pt. is happy NG tube is out and states she's had no abdominal pain. Still having small BM's, no diarrhea. She would like to go home later today. Objective - Review of Systems Generalized/Overall Review: Reports: No Symptoms Reported EENTM: Reports: No Symptoms Reported Respiratory: Reports: Cough, Other - NEW Abdominal: Reports: No Symptoms Reported Genitourinary Symptoms: Reports: Incontinent Musculoskeletal Complaints: Reports: No Symptoms Reported Neurological: Reports: Weakness Skin: Reports: No Symptoms Reported Endocrine: Reports: No Symptoms Reported - Vitals Vitals: Last Vital Signs Temp 36.9 C 10/07/17 06:00 Pulse 71 10/07/17 06:00 Resp 16 10/07/17 06:00 BP 145/69 10/07/17 06:00 Pulse Ox 91 10/07/17 06:00 - Abnormal Lab Findings Abnormal Lab Findings: Abnormal Lab Results 10/07/17 Range/Units 06:23 Est GFR (Non-Af Amer) 47 L (60-130) mL/min BUN/Creatinine Ratio 6.8 L (9.0-21.6) Random Glucose 116 H (70-110) mg/dL Calcium 7.7 L (7.9-10.9) mg/dL Total Protein 6.0 L (6.2-8.2) gm/dL Albumin 2.7 L (3.4-5.0) gm/dl - Exam Constitutional: Present: Alert, Oriented x3, Cooperative, No distress ENT Exam: Present: hearing grossly normal Neck: Present: supple Respiratory: Present: no respiratory distress, no accessory muscle use, rhonchi - del, expiration (prolonged) Cardiovascular/Chest: Present: regular rate, rhythm Abdomen: Present: Normal bowel sounds, soft, nontender, distended Extremity: Present: no pedal edema, no calf tenderness Skin Exam: Present: normal color Neurologic: Present: normal mood/affect, oriented x 3 Appearance: Present: appropriate appearance, appropriate insight, neat Eye contact: Present: cooperative, good eye contact, normal speech Thoughts: Present: normal thought pattern, no apparent hallucination Assessment/Plan - Problems/Diagnosis (1) COPD exacerbation Problem: Acute Narrative: stable and improving. once taking good po will transition to PO levaquin and prednisone taper. (2) Chronic renal disease, stage 2, mildly decreased glomerular filtration rate between 60-89 mL/min/1.73 square meter Problem: Chronic (3) respiratory failure hypoxemia acute Problem: Resolved (4) Dementia Problem: Chronic Qualifiers: Dementia type: unspecified type Dementia behavioral disturbance: without behavioral disturbance Qualified Code(s): F03.90 - Unspecified dementia without behavioral disturbance Narrative: stable. (5) Pneumonia Problem: Acute Qualifiers: Pneumonia type: due to unspecified organism Laterality: unspecified laterality Lung location: unspecified part of lung Qualified Code(s): J18.9 - Pneumonia, unspecified organism Narrative: improving. (6) Abdominal distension (gaseous) Problem: Acute Narrative: due to ileus. continue suppositories to keep bowels moving. will do reglan for now as long as it doesn't cause mental/neuro issues. (7) Constipation, acute Problem: Chronic (8) Weakness Problem: Acute Narrative: continue PT for strengthening. (9) Partial small bowel obstruction Problem: Acute (10) Discharge planning issues Problem: Acute Narrative: hopefully discharge later tomorrow if tolerating a diet and taking po meds.
[2017-10-07] MEDS: PANTOPRAZOLE SODIUM 40 MG in NORMAL SALINE 50 ML IV SCH (06:53)
[2017-10-07] MEDS: LEVOTHYROXINE SODIUM 88 MCG TABLET PO SCH (06:53)
[2017-10-07] MEDS: BUDESONIDE 0.5 MG/2 ML VIAL.NEB IH SCH ×2 (07:59→18:22)
[2017-10-07] MEDS: TIOTROPIUM BROMIDE 5 CAP INHALER IH SCH (09:28)
[2017-10-07] MEDS: ATENOLOL 25 MG TABLET PO SCH (09:28)
[2017-10-07] MEDS: CLOPIDOGREL BISULFATE 75 MG TABLET PO SCH (09:28)
[2017-10-07] MEDS: QUEtiapine FUMARATE 25 MG TABLET PO SCH (09:28)
[2017-10-07] MEDS: FLUTICASONE/SALMETEROL 14 PUFF DISK.W.DEV IH SCH ×2 (09:29→20:56)
[2017-10-07] MEDS: POLYETHYLENE GLYCOL 3350 119 GM BTL PO SCH (09:29)
[2017-10-07] MEDS: LEVOFLOXACIN IN DEXTROSE 5 % 750 MG/150 ML BAG IV SCH (09:29)
[2017-10-07] MEDS: POTASSIUM CHLORIDE 20 MEQ in DEXTROSE 5%-0.5 NORMAL SALINE 990 ML IV SCH ×2 (10:04→20:54)
[2017-10-07] MEDS: BISACODYL 10 MG SUPP.RECT RC SCH ×2 (10:25→20:56)
[2017-10-07] MEDS: MONTELUKAST SODIUM 10 MG TABLET PO SCH (20:55)
[2017-10-07] MEDS: SENNOSIDES 8.6 MG TABLET PO SCH (20:56)
[2017-10-08] MEDS: LIDOCAINE HCL 20 ML UDC MM SCH ×5 (00:13→14:46)
[2017-10-08] MEDS: ALBUTEROL SULFATE 2.5 MG/0.5 ML VIAL.NEB IH SCH ×3 (01:18→12:48)
[2017-10-08] MEDS: METHYLPREDNISOLONE SOD SUCC 60 MG in WATER FOR INJ.,BACTERIOSTATIC 0 ML IV SCH (04:20)
[2017-10-08] MEDS: METOCLOPRAMIDE HCL 5 MG/5 ML BTL PO SCH ×3 (04:20→14:46)
[2017-10-08] MEDS: BUDESONIDE 0.5 MG/2 ML VIAL.NEB IH SCH (06:38)
[2017-10-08] MEDS: LEVOTHYROXINE SODIUM 88 MCG TABLET PO SCH (07:14)
[2017-10-08] MEDS ORDERED: PANTOPRAZOLE SODIUM 40 MG TABLET.EC PO SCH (07:20)
[2017-10-08] MEDS: POTASSIUM CHLORIDE 20 MEQ in DEXTROSE 5%-0.5 NORMAL SALINE 990 ML IV SCH (07:26)
[2017-10-08] MEDS: FLUTICASONE/SALMETEROL 14 PUFF DISK.W.DEV IH SCH (09:56)
[2017-10-08] MEDS: POLYETHYLENE GLYCOL 3350 119 GM BTL PO SCH (09:58)
[2017-10-08] MEDS: BISACODYL 10 MG SUPP.RECT RC SCH (09:58)
[2017-10-08] MEDS: ATENOLOL 25 MG TABLET PO SCH (09:59)
[2017-10-08] MEDS: QUEtiapine FUMARATE 25 MG TABLET PO SCH (09:59)
[2017-10-08] MEDS: CLOPIDOGREL BISULFATE 75 MG TABLET PO SCH (10:00)
[2017-10-08] MEDS: TIOTROPIUM BROMIDE 5 CAP INHALER IH SCH (10:00)
[2017-10-08 15:06] VITALS: BP 171/78
--- NOTE | 2017-10-08 15:20 | DS ---
(1) COPD exacerbation Problem: Acute (2) Chronic renal disease, stage 2, mildly decreased glomerular filtration rate between 60-89 mL/min/1.73 square meter Problem: Chronic (3) respiratory failure hypoxemia acute Problem: Resolved (4) Dementia Problem: Chronic Qualifiers: Dementia type: unspecified type Dementia behavioral disturbance: without behavioral disturbance Qualified Code(s): F03.90 - Unspecified dementia without behavioral disturbance (5) Pneumonia Problem: Acute Qualifiers: Pneumonia type: due to unspecified organism Laterality: unspecified laterality Lung location: unspecified part of lung Qualified Code(s): J18.9 - Pneumonia, unspecified organism (6) Abdominal distension (gaseous) Problem: Acute (7) Constipation, acute Problem: Chronic (8) Weakness Problem: Acute (9) Partial small bowel obstruction Problem: Acute (10) Discharge planning issues Problem: Acute Description of Stay: Pt. originally admitted for: Acute Respiratory failure Acute on chronic COPD exacerbation Pneumonia these improved with her being weaned off the oxygen in a few days and with steroid taper to a point where she could be discharged just on levaquin. During her stay she developed: Abdominal distension which was thought to be SBO. She had NGT placed with copious amount of outpt for 48hrs and the distension did not seem to be improving so CT was done which showed ileus, no obstruction. Reglan was given which seemed to improve her sx, but will not continue this due to risks in elderly with this med. Weakness: pt. had PT scheduled. She was improving but still will need some PT for strengthening upon discharge. Procedures Performed: none Discharge Location: [facility] Disposition: Home Health Service Condition: Good Discharge Activity: Activity as tolerated Discharge Diet: General/regular food Shelter Therapy: Physicial Therapy Referrals: Nav Browne MD [Primary Care Provider] - Two Weeks Additional Patient Instructions (free text): -Please make TCM appointment unless halfway discharge. Thank you! Greer @ [phone]. [facility] new. Please call report and fax orders and face to face upon discharge. Prescriptions (Any new or edited meds): Levofloxacin [Levaquin] 750 mg PO Q48H #2 tablet Complete Home Medications List: Complete Home Medication List: Acetaminophen [Tylenol] 325 mg PO Q4H PRN 03/18/16 Albuterol Sulfate [Proair Hfa] 1 - 2 puff IH Q4H PRN 03/18/16 Atenolol [Tenormin] 25 mg PO DAILY 03/18/16 Baclofen 10 mg PO TID 03/18/16 Clopidogrel Bisulfate [Plavix] 75 mg PO DAILY 03/18/16 Folic Acid 1 mg PO DAILY 03/18/16 Gabapentin 300 mg PO TID 03/18/16 Levothyroxine Sodium [Synthroid] 88 mcg PO DAILY 03/18/16 Meloxicam [Mobic] 15 mg PO DAILY PRN 03/18/16 Montelukast Sodium [Singulair] 10 mg PO DAILY 03/18/16 Potassium Chloride [Klor-Con 10] 10 meq PO DAILY 03/18/16 QUEtiapine FUMARATE [Seroquel] 25 mg PO DAILY 03/18/16 Tiotropium [place] [Spiriva] 1 cap IH DAILY 03/18/16 traMADol HCL [Ultram] 50 mg PO Q6H PRN 03/18/16 Albuterol Sulfate [Albuterol Sulfate 2.5 MG/3 ML] 2.5 mg IH QID 10/08/16 Docusate Sodium [Colace] 100 mg PO BID 10/08/16 Polyethylene Glycol 3350 [Miralax] 17 gm PO BID 10/08/16 Sennosides [Senokot] 17.2 mg PO HS 10/08/16 l Acidophil/B Lactis/B Longum [Florajen3 Capsule] 460 mg PO DAILY 10/08/16 Cholecalciferol (Vitamin D3) [Vitamin D3] 1,000 unit PO DAILY 09/29/17 Fluticasone/Salmeterol [Advair 250-50 Diskus] 1 puff IH BID 09/29/17 Bisacodyl [Dulcolax Suppository] 10 mg RC BID supp.rect 10/08/17 Levofloxacin [Levaquin] 750 mg PO Q48H #2 tablet 10/08/17 Polyethylene Glycol 3350 [Miralax] 17 gm PO DAILY btl 10/08/17
[2017-10-09] MEDS ORDERED: LEVOFLOXACIN 750 MG TABLET PO SCH (11:00)
== END 2017-10-08 17:15 | disposition home health service (06) | DRG 189 ==
LOC: SUPCPDRO 04:23 → ER 04:23 → MS 05:27
PROVIDERS: ADMIT Nurse Practitioner; ATTEND Family Medicine
PROC: 4A033R1 Measurement of Arterial Saturation, Peripheral, Percutaneous Approach (ICD-10-PCS; principal; 2017-09-29)
DX: Z85.038 Personal history of other malignant neoplasm of large intestine; K56.7 Ileus, unspecified; I12.9 Hypertensive chronic kidney disease with stage 1 through stage 4 chronic kidney disease, or unspecified chronic kidney disease; J18.9 Pneumonia, unspecified organism; Z87.891 Personal history of nicotine dependence; N18.2 Chronic kidney disease, stage 2 (mild); K59.00 Constipation, unspecified; J96.01 Acute respiratory failure with hypoxia; J44.1 Chronic obstructive pulmonary disease with (acute) exacerbation; R53.1 Weakness; J44.0 Chronic obstructive pulmonary disease with (acute) lower respiratory infection; I25.10 Atherosclerotic heart disease of native coronary artery without angina pectoris; F03.90 Unspecified dementia, unspecified severity, without behavioral disturbance, psychotic disturbance, mood disturbance, and anxiety; E03.9 Hypothyroidism, unspecified

== ENCOUNTER 2019-05-03 22:02 | Inpatient (IN) ==
[2019-05-03] MEDS ORDERED: DILTIAZEM HCL 125 MG in DEXTROSE 5 % IN WATER 100 ML IV PRN ×2 (22:20)
[2019-05-03] MEDS ORDERED: DILTIAZEM HCL 5 MG/ML VIAL IV ONE (22:20)
--- NOTE | 2019-05-03 22:23 | ERNOTE ---
Dyspnea - General Presenting Symptoms: shortness of breath Time Seen by Provider: 05/03/19 22:10 Source: patient Exam Limitations: no limitations - Immun/Allergies/Home Medications Immunizations: IMMUNIZATION HX Immunizations Up to Date No History of Influenza Vaccine No Hx Pneumococcal Vaccination Yes Allergies/Adverse Reactions: Allergies ceftriaxone sodium [From Rocephin] Allergy (Mild, Verified 05/03/19 22:09) SWELLING Home Medications: HOME MEDICATIONS Acetaminophen [Tylenol] 325 mg PO Q4H PRN 05/03/19 [Last Taken Unknown] Albuterol Sulfate [Albuterol Sulfate 2.5 MG/0.5ML] 1 vial INHALATION QID 05/03/19 [Last Taken Unknown] Albuterol Sulfate [Proair Hfa] 1 - 2 puff INHALATION Q4H PRN 05/03/19 [Last Taken Unknown] Atenolol [Tenormin] 25 mg PO DAILY 05/03/19 [Last Taken Unknown] Baclofen 10 mg PO TID 05/03/19 [Last Taken Unknown] Bisacodyl [Dulcolax Suppository] 10 mg RC BID 05/03/19 [Last Taken Unknown] Cholecalciferol (Vitamin D3) [Vitamin D3] 1,000 unit PO DAILY 05/03/19 [Last Taken Unknown] Clopidogrel Bisulfate [Plavix] 75 mg PO DAILY 05/03/19 [Last Taken Unknown] Docusate Sodium [Colace] 100 mg PO BID 05/03/19 [Last Taken Unknown] Fluticasone Propion/Salmeterol [Advair 250-50 Diskus] 1 puff INHALATION BID 05/03/19 [Last Taken Unknown] Folic Acid 1 mg PO DAILY 05/03/19 [Last Taken Unknown] Gabapentin 300 mg PO TID 05/03/19 [Last Taken Unknown] Levothyroxine Sodium [Synthroid] 88 mcg PO DAILY 05/03/19 [Last Taken Unknown] Meloxicam [Mobic] 15 mg PO DAILY PRN 05/03/19 [Last Taken Unknown] Montelukast Sodium [Singulair] 10 mg PO DAILY 05/03/19 [Last Taken Unknown] Polyethylene Glycol 3350 [Miralax] 17 gm PO DAILY 05/03/19 [Last Taken Unknown] Potassium Chloride [Klor-Con M10] 10 meq PO DAILY 05/03/19 [Last Taken Unknown] QUEtiapine FUMARATE [Seroquel] 25 mg PO DAILY 05/03/19 [Last Taken Unknown] Sennosides [Senna-Extra] 17.2 mg PO HS 05/03/19 [Last Taken Unknown] Tiotropium [place] [Spiriva] 18 mcg INHALATION DAILY 05/03/19 [Last Taken Unknown] l Acidophil/B Lactis/B Longum [Florajen3 Capsule] 460 mg PO DAILY 05/03/19 [Last Taken Unknown] traMADol HCL [Ultram] 50 mg PO Q6H PRN 05/03/19 [Last Taken Unknown] - History of Present Illness Narrative: She states she is a little short of breath until she gets her breathing treatment in the evening. Tonight she could not even get up to get her breathing treatment because she had such severe shortness of breath. She may have been getting a little bit worse over the past 2 to 3 days but much worse tonight Severity: severe Treatment [employer]: paramedics, oxygen Initiating event: Reports: none Associated Symptoms-Dyspnea: Reports: denies symptoms Review of Systems - Review of Systems Constitutional: Absent: recent illness, fever, chills ENT: Absent: nose congestion, nasal drainage Respiratory: Present: See HPI Cardiology: Present: edema - right leg for past few days. . Absent: chest pain, palpitations Gastrointestinal/Abdominal: Absent: nausea, vomiting Genitourinary: Absent: frequency, pain, dysuria Musculoskeletal: Absent: back pain Skin: Absent: rash Neurological: Absent: dizziness/light-headedness Endocrine: Absent: excessive sweating Medical History (Updated 05/04/19 @ 04:29 by Yash Blackburn DO) Weight loss (Chronic) Onset Date: ~04/15/13 Vitamin D deficiency (Chronic) Onset Date: ~08/07/12 Tremor (Chronic) Onset Date: ~12/03/11 Peripheral neuropathy (Chronic) Onset Date: ~12/03/11 Liver disease (Chronic) Onset Date: ~09/08/12 Knee pain (Chronic) Onset Date: ~09/07/12 Influenza (Chronic) Onset Date: Unknown Hypothyroidism (Chronic) Onset Date: Unknown Hypokalemia (Chronic) Onset Date: Unknown Hypertension (Chronic) Onset Date: Unknown Humerus fracture (Chronic) Onset Date: ~2007 Hearing loss (Chronic) Onset Date: Unknown GERD (gastroesophageal reflux disease) (Chronic) Onset Date: Unknown Fibromyalgia (Chronic) Onset Date: Unknown Edema (Chronic) Onset Date: Unknown Depression (Chronic) Onset Date: Unknown Dementia (Chronic) Onset Date: ~09/08/12 Colonic polyp (Chronic) Onset Date: Unknown Colon neoplasm (Chronic) Onset Date: ~1985 COPD (chronic obstructive pulmonary disease) (Chronic) Onset Date: Unknown Chronic kidney disease (Chronic) Onset Date: ~02/10/16 CVA (cerebral vascular accident) (Chronic) Onset Date: ~10/11/12 Asthma (Chronic) Onset Date: Unknown Anemia (Chronic) Onset Date: ~09/08/12 Allergic rhinitis (Chronic) Onset Date: ~01/20/14 Alcoholic hepatitis Atrial fibrillation Surgical History: Surgical History (Updated 11/10/18 @ 08:07 by Dori Shields RN) H/O colonoscopy Onset Date: ~10/21/16 History of adenoidectomy Onset Date: ~1939 History of appendectomy Onset Date: ~1985 History of cataract surgery Onset Date: Unknown History of colon resection Onset Date: ~1985 History of thumb surgery Onset Date: ~06/24/04 Hx of tonsillectomy Onset Date: ~1939 S/P ORIF (open reduction internal fixation) fracture Onset Date: ~02/22/08 S/P hardware removal Onset Date: ~09/19/08 Status post osteotomy Onset Date: ~02/22/08 Family History: Family History (Updated 11/10/18 @ 07:49 by Dori Shields RN) Father Heart disease Mother Old age Brother MVA (motor vehicle accident) Sister Cancer breast Crohns disease Grandmother Cancer breast Daughter Cancer breast Social History: (Last Reviewed 05/03/19 @ 22:21 by Yash Blackburn DO) Social History: Marital status: / household members: none current occupational status: retired Service: No Tobacco: Smoking Status: Former smoker Alcohol: alcohol intake: former Substance Use: substance use type: does not use Dietary Habits: caffeine: Yes Physical Exam - Physical Exam General Appearance: Present: wd/wn, alert, mild distress Head Exam: Present: normal inspection, no evidence of injury Ears, Nose, Throat: Present: normal ENT inspection Neck: Present: normal inspection, nontender Respiratory: Present: no respiratory distress, decreased breath sounds, expiration (prolonged) Cardiovascular/Chest: Present: tachycardia, irregularly irregular Gastrointestinal/Abdominal: Present: normal bowel sounds, tenderness - diffuse, distended. Absent: guarding, rebound Extremity Exam: Present: normal inspection, normal range of motion, no edema Neurological Exam: Present: alert, oriented, normal mood/affect Skin Exam: Present: normal color, warm/dry Lymphatic Exam: Present: no adenopathy Progress - Results and Orders Patient's Lab Results:: I have reviewed the patient's lab results. Results and Orders: Laboratory Tests 05/03/19 22:30 Sodium 129 L Plasma Sodium 130 Potassium 4.6 Chloride 94 L Carbon Dioxide 26.9 BUN 22 Creatinine 1.38 Random Glucose 150 H Calcium 8.3 Total Bilirubin 0.6 AST 47 ALT 43 Alkaline Phosphatase 114 Troponin I 0.055 B-Natriuretic Peptide 71006 H Total Protein 6.9 Albumin 3.8 - Vital Signs Patient's Vital Signs:: I have reviewed the patient's vital signs. Vital Signs: Vital Signs 05/03/19 22:05 Temperature 36.4 C Pulse Rate 158 H Respiratory Rate 26 H Blood Pressure 145/94 H O2 Sat by Pulse Oximetry 88 L - EKG EKG #1 EKG: atrial fibrillation - with RVR at 158. - X-Ray X-Ray #1 X-Ray: chest X-ray Comments: bilateral pulmonary edema with mild cardiomegaly - CT/Ultrasound CT/Ultrasound Narrative: CTA chest. 1. Findings suggest right heart failure. 2. No PE seen - Progress/Reassessment Progress:: Improved Progress Note-Subjective: 05/04/19 04:[address] Banks she agrees with admission to special care unit. Departure Clinical Impression: Atrial fibrillation with rapid ventricular response, CHF with right heart failure - Departure Disposition: Still a patient Condition: Fair
[2019-05-03 22:35] LABS: Hemoglobin 13.1 gm/dL (12.5-16.0); Mean Cell Volume 89.6 fl (78-100); Mean Corpuscular Hemoglobin 30.9 pg (27-31); Mean Corpuscular Hgb Conc 34.5 g/dl (32-36); Mean Platelet Volume 11.3 fl (8-12.5); Neutrophil # 6.3 K/mm3 (1.3-6.0); Neutrophil % 68.9 % (42-75.0); Platelet Count 219 K/mm3 (150-450); Red Blood Count 4.24 M/mm3 (4.2-5.4); White Blood Count 9.2 K/mm3 (4.0-10.5)
[2019-05-03 22:52] LABS: Troponin I 0.055 ng/mL (0.00-0.10)
[2019-05-03 22:55] LABS: Albumin * 3.8 gm/dl (3.4-5.0); Anion Gap 12.7 mmol/L (6.8-13.8); BUN/Creatinine Ratio 15.9 (9.0-21.6); Bilirubin, Total 0.6 mg/dL (0.0-1.1); Ca. Corrected For Albumin 8.1 mg/dL (8.4-10.2); Calcium * 8.3 mg/dL (7.9-10.9); Carbon Dioxide 26.9 mmol/L (24-32.6); Potassium 4.6 mmol/L (3.4-4.6); Total Protein 6.9 gm/dL (6.2-8.2)
[2019-05-03] MEDS ORDERED: FUROSEMIDE 10 MG/ML VIAL IV ONE (23:37)
[2019-05-04 00:36] LABS: Urine Bilirubin Negative (NEGATIVE); Urine Blood Negative /ul (NEGATIVE); Urine Ketone Negative (NEGATIVE); Urine Nitrite Negative (NEGATIVE); Urine Protein Negative (NEGATIVE); Urine Specific Gravity 1.015 SP.GR. (1.005-1.010); Urine Urobilinogen Normal (NORMAL)
[2019-05-04 00:43] LABS: Urine Appearance Clear (CLEAR); Urine Bacteria TRACE; Urine Color Yellow; Urine RBC None Seen /hpf (0-5); Urine WBC None Seen /hpf (0-5)
[2019-05-04] MEDS ORDERED: NORMAL SALINE 500 ML IV ONE (01:09)
[2019-05-04] MEDS ORDERED: ACETAMINOPHEN 325 MG TABLET PO PRN (08:47)
[2019-05-04] MEDS ORDERED: MELOXICAM 15 MG TABLET PO PRN (08:47)
[2019-05-04] MEDS ORDERED: ALBUTEROL SULFATE 2.5 MG/0.5 ML VIAL.NEB IH PRN (08:47)
[2019-05-04] MEDS ORDERED: FAMOTIDINE 20 MG in DEXTROSE 5 % IN WATER 100 ML IV SCH ×2 (09:00)
[2019-05-04] MEDS ORDERED: FLU VACC QS2019-20(6MOS UP)/PF 60 MCG/0.5 ML SYRINGE IM ONE (09:00)
[2019-05-04] MEDS ORDERED: ATENOLOL 25 MG TABLET PO SCH (09:00)
[2019-05-04] MEDS: FOLIC ACID 1 MG TABLET PO SCH (09:16)
[2019-05-04] MEDS: GABAPENTIN 300 MG CAPSULE PO SCH ×2 (09:16→13:41)
[2019-05-04] MEDS: CLOPIDOGREL BISULFATE 75 MG TABLET PO SCH (09:16)
[2019-05-04] MEDS: FLUTICASONE PROPION/SALMETEROL 14 PUFF DISK.W.DEV IH SCH ×2 (09:16→20:05)
[2019-05-04] MEDS: POTASSIUM CHLORIDE 10 MEQ TABLET.SA PO SCH (09:16)
[2019-05-04] MEDS: QUEtiapine FUMARATE 25 MG TABLET PO SCH (09:17)
[2019-05-04] MEDS: FUROSEMIDE 10 MG/ML VIAL IV SCH ×2 (09:17→22:20)
[2019-05-04] MEDS: CHOLECALCIFEROL 1,000 UNIT CAPSULE PO SCH (09:17)
[2019-05-04] MEDS: BACLOFEN 10 MG TABLET PO SCH ×2 (09:17→13:40)
[2019-05-04] MEDS: MONTELUKAST SODIUM 10 MG TABLET PO SCH (09:17)
[2019-05-04] MEDS: DOCUSATE SODIUM 100 MG CAPSULE PO SCH ×2 (09:17→20:08)
[2019-05-04] MEDS: LEVOTHYROXINE SODIUM 88 MCG TABLET PO SCH (09:17)
[2019-05-04] MEDS: LACTOBACILLUS ACIDOPHILUS 1 EACH CAPSULE PO SCH (09:17)
[2019-05-04] MEDS: TIOTROPIUM BROMIDE 5 CAP INHALER IH SCH (09:20)
--- NOTE | 2019-05-04 09:28 | HP ---
Chief Complaint - Chief Complaint Date of Service: 05/04/19 Time of Service: 09:14 Chief Complaint: I have had worsening shortness of breath for 3 days History of Present Illness: 89-year-old female with past medical history of bronchial asthma, atrial fibrillation, chronic kidney disease, COPD, CVA, dementia, depression, hypertension, and hypothyroidism was evaluated in our ER after she was brought in by EMS from her assisted living facility at the [facility] for worsening shortness of breath not responding to at home treatments. Patient reports that her shortness of breath began 2 to 3 days ago and initially it responded to her breathing treatments with albuterol, last night however yesterday and it was difficult to afternoon she noticed that her breathing treatments were not helping ambulate from one point to another due to severe dyspnea. Patient informed the facility staff of her condition and decision to bring her into the ER was made. She denies any chest pain but has since becoming short of breath she is sometimes dizzy. Medical History (Updated 05/04/19 @ 04:29 by Yash Blackburn DO) Weight loss (Chronic) Onset Date: ~04/15/13 Vitamin D deficiency (Chronic) Onset Date: ~08/07/12 Tremor (Chronic) Onset Date: ~12/03/11 Peripheral neuropathy (Chronic) Onset Date: ~12/03/11 Liver disease (Chronic) Onset Date: ~09/08/12 Knee pain (Chronic) Onset Date: ~09/07/12 Influenza (Chronic) Onset Date: Unknown Hypothyroidism (Chronic) Onset Date: Unknown Hypokalemia (Chronic) Onset Date: Unknown Hypertension (Chronic) Onset Date: Unknown Humerus fracture (Chronic) Onset Date: ~2007 Hearing loss (Chronic) Onset Date: Unknown GERD (gastroesophageal reflux disease) (Chronic) Onset Date: Unknown Fibromyalgia (Chronic) Onset Date: Unknown Edema (Chronic) Onset Date: Unknown Depression (Chronic) Onset Date: Unknown Dementia (Chronic) Onset Date: ~09/08/12 Colonic polyp (Chronic) Onset Date: Unknown Colon neoplasm (Chronic) Onset Date: ~1985 COPD (chronic obstructive pulmonary disease) (Chronic) Onset Date: Unknown Chronic kidney disease (Chronic) Onset Date: ~02/10/16 CVA (cerebral vascular accident) (Chronic) Onset Date: ~10/11/12 Asthma (Chronic) Onset Date: Unknown Anemia (Chronic) Onset Date: ~09/08/12 Allergic rhinitis (Chronic) Onset Date: ~01/20/14 Alcoholic hepatitis Atrial fibrillation Surgical History: Surgical History (Updated 11/10/18 @ 08:07 by Dori Shields RN) H/O colonoscopy Onset Date: ~10/21/16 History of adenoidectomy Onset Date: ~1939 History of appendectomy Onset Date: ~1985 History of cataract surgery Onset Date: Unknown History of colon resection Onset Date: ~1985 History of thumb surgery Onset Date: ~06/24/04 Hx of tonsillectomy Onset Date: ~1939 S/P ORIF (open reduction internal fixation) fracture Onset Date: ~02/22/08 S/P hardware removal Onset Date: ~09/19/08 Status post osteotomy Onset Date: ~02/22/08 Family History: Family History (Updated 11/10/18 @ 07:49 by Dori Shields RN) Father Heart disease Mother Old age Brother MVA (motor vehicle accident) Sister Cancer breast Crohns disease Grandmother Cancer breast Daughter Cancer breast Social History: (Last Reviewed 05/04/19 @ 06:52 by Sofia Harrell RN) Social History: longterm: No longterm comment: Assisted living at the [facility] Marital status: / household members: none current occupational status: retired Service: No Tobacco: Smoking Status: Former smoker Alcohol: alcohol intake: former Substance Use: substance use type: does not use Dietary Habits: caffeine: Yes Peds Patient Hx - Developmental: No Pertinent Hx Peds Patient Hx - Medical: No Pertinent Hx Peds Patient Hx - Cardiac/Respiratory: No Pertinent Hx Peds Patient Hx - Surgical: No Surgical History Patient History - Cancer: No Hx of Cancer Review Of Systems (GEN) - Review of Systems Generalized/Overall Review: Present: Weakness EENTM: Present: No Symptoms Reported Respiratory: Present: Shortness of Breath, Wheezing Cardiac: Present: No Symptoms Reported Abdominal: Present: No Symptoms Reported Genitourinary: Present: No Symptoms Reported Musculoskeletal: Present: No Symptoms Reported Neurological: Present: No Symptoms Reported Skin: Present: No Symptoms Reported Endocrine: Present: No Symptoms Reported Immunizations: IMMUNIZATION HX Immunizations Up to Date Yes History of Influenza Vaccine No Hx Pneumococcal Vaccination Yes Allergies/Adverse Reactions: Allergies Allergy/AdvReac Type Severity Reaction Status Date / Time ceftriaxone sodium Allergy Mild SWELLING Verified 05/03/19 22:09 [From [facility]] Home Medications: HOME MEDICATIONS Acetaminophen [Tylenol] 325 mg PO Q4H PRN 05/03/19 [Last Taken Unknown] Albuterol Sulfate [Albuterol Sulfate 2.5 MG/0.5ML] 1 vial INHALATION QID 05/03/19 [Last Taken Unknown] Albuterol Sulfate [Proair Hfa] 1 - 2 puff INHALATION Q4H PRN 05/03/19 [Last Taken Unknown] Atenolol [Tenormin] 25 mg PO DAILY 05/03/19 [Last Taken Unknown] Baclofen 10 mg PO TID 05/03/19 [Last Taken Unknown] Bisacodyl [Dulcolax Suppository] 10 mg RC BID 05/03/19 [Last Taken Unknown] Cholecalciferol (Vitamin D3) [Vitamin D3] 1,000 unit PO DAILY 05/03/19 [Last Taken Unknown] Clopidogrel Bisulfate [Plavix] 75 mg PO DAILY 05/03/19 [Last Taken Unknown] Docusate Sodium [Colace] 100 mg PO BID 05/03/19 [Last Taken Unknown] Fluticasone Propion/Salmeterol [Advair 250-50 Diskus] 1 puff INHALATION BID [Last Taken Unknown] Folic Acid 1 mg PO DAILY 05/03/19 [Last Taken Unknown] Gabapentin 300 mg PO TID 05/03/19 [Last Taken Unknown] Levothyroxine Sodium [Synthroid] 88 mcg PO DAILY 05/03/19 [Last Taken Unknown] Meloxicam [Mobic] 15 mg PO DAILY PRN 05/03/19 [Last Taken Unknown] Montelukast Sodium [Singulair] 10 mg PO DAILY 05/03/19 [Last Taken Unknown] Polyethylene Glycol 3350 [Miralax] 17 gm PO DAILY 05/03/19 [Last Taken Unknown] Potassium Chloride [Klor-Con M10] 10 meq PO DAILY 05/03/19 [Last Taken Unknown] QUEtiapine FUMARATE [Seroquel] 25 mg PO DAILY 05/03/19 [Last Taken Unknown] Sennosides [Senna-Extra] 17.2 mg PO HS 05/03/19 [Last Taken Unknown] Tiotropium [place] [Spiriva] 18 mcg INHALATION DAILY 05/03/19 [Last Taken Unknown] l Acidophil/B Lactis/B Longum [Florajen3 Capsule] 460 mg PO DAILY 05/03/19 [Last Taken Unknown] traMADol HCL [Ultram] 50 mg PO Q6H PRN 05/03/19 [Last Taken Unknown] Exam - Exam Vital Signs: Vital Signs - Last Taken Temp 36.4 C 05/04/19 08:44 Pulse 123 H 05/04/19 08:44 Resp 20 05/04/19 08:44 BP 136/81 05/04/19 08:44 Pulse Ox 95 05/04/19 08:44 Constitutional: Present: Alert, Oriented x3, Cooperative, Well developed, Well nourished, No distress, Elderly, Obese ENT Exam: Present: normal ENT inspection, hearing grossly normal, pharynx normal, TMs normal Eye Exam: bilateral eye: normal inspection, PERRL, EOMI Neck: Present: non-tender, full range of motion, supple, normal inspection, trachea midline Back Exam: Present: normal inspection, no CVA tenderness, no vertebral tenderness Breasts: Present: Exam deferred Respiratory: Present: decreased breath sounds, crackles, rales, wheezing Cardiovascular/Chest: Present: normal peripheral pulses, no chest tenderness, no edema - +1 pedal edema on right extremity, no gallop, no JVD, no murmur, no rub, irregularly irregular Peripheral Pulses: carotid (R): 3+, carotid (L): 3+, femoral (R): 3+, femoral (L): 3+, dorsalis-pedis (R): 2+, dorsalis-pedis (L): 2+ Abdomen: Present: Normal bowel sounds, soft, nontender, nondistended, no rebound tenderness, no hepatospenomegaly, no masses, obese, CVA tenderness /Rectal: Present: Exam deferred Extremity: Present: normal range of motion, non-tender, normal inspection, no pedal edema, no calf tenderness, normal capillary refill Skin Exam: Present: normal color, warm/dry, no cyanosis Lymphatic: Present: no adenopathy 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, normal cerebellar test, no motor/sensory deficits, alert, normal mood/affect, oriented x 3 Appearance: Present: appropriate appearance, appropriate insight, neat, impaired recent memory, impaired remote memory Eye contact: Present: cooperative, good eye contact, normal speech Thoughts: Present: normal thought pattern, no apparent hallucination Diagnostic Studies: Abnormal Lab Results 05/03/19 05/03/19 05/03/19 Range/Units 22:30 22: 22: Immature Gran # (Auto) 0.04 H (0.000-0.0310) K/mm3 Monocytes % 9.3 H (0.0-9) % Neutrophils # 6.3 H (1.3-6.0) K/mm3 D-Dimer 1.02 H (0.19-0.49) ug/mL Sodium 129 L (132-142) mmol/L Chloride 94 L (97-106) mmol/L Est GFR (Non-Af Amer) 38 L (60-130) mL/min Random Glucose 150 H (70-110) mg/dL Calcium Adj for Albumin 8.1 L (8.4-10.2) mg/dL B-Natriuretic Peptide 95868 H (5-550) pg/mL Laboratory Results WBC 9.2 K/mm3 (4.0-10.5) 05/03/19 22: RBC 4.24 M/mm3 (4.2-5.4) 05/03/19 22:30 Hgb 13.1 gm/dL (12.5-16.0) 05/03/19: Hct 38.0 % (37.0-47.0) 05/03/19: MCV 89.6 fl (78-100) 05/03/19: MCH 30.9 pg (27-31) 05/03/19: MCHC 34.5 g/dl (32-36) 05/03/19: RDW 13.0 % (11.5-14.0) 05/03/19: Plt Count 219 K/mm3 (150-450) 05/03/19: MPV 11.3 fl (8-12.5) 05/03/19 22:30 Immature Gran % (Auto) 0.40 % (0.001-0.429) 05/03/19 22:30 Immature Gran # (Auto) 0.04 K/mm3 (0.000-0.0310) H 05/03/19 22:30 68.9 % (42-75.0) 05/03/19 22:30 20.8 % (20-51) 05/03/19 22:30 9.3 % (0.0-9) H 05/03/19 22:30 0.1 % (0.0-3.0) 05/03/19 22:30 0.5 % (0.0-1.0) 05/03/19 22: Nucleated RBC % 0.0 k/mm3 (0-1) 05/03/19 22:30 6.3 K/mm3 (1.3-6.0) H 05/03/19 22:30 1.90 k/mm3 (1.5-3.5) 05/03/19 22:30 0.9 k/mm3 (0.0-1.0) 05/03/19 22:30 0.0 k/mm3 (0.0-0.7) 05/03/19: Absolute Basophils 0.1 k/mm3 (0.0-0.1) 05/03/19 22:30 1.02 ug/mL (0.19-0.49) H 05/03/19 22:30 Sodium 129 mmol/L (132-142) L 05/03/19 22:30 130 mmol/L (130-142) 05/03/19 22:30 Potassium 4.6 mmol/L (3.4-4.6) 05/03/19 22:30 Chloride 94 mmol/L (97-106) L 05/03/19 22:30 Carbon Dioxide 26.9 mmol/L (24-32.6) 05/03/19 22:30 12.7 mmol/L (6.8-13.8) 05/03/19 22:30 BUN 22 mg/dL (3-23) 05/03/19 22:30 1.38 mg/dL (0.4-1.4) 05/03/19 22:30 Est GFR (Non-Af Amer) 38 mL/min (60-130) L 05/03/19 22:30 15.9 (9.0-21.6) 05/03/19 22:30 150 mg/dL (70-110) H 05/03/19 22:30 Calcium 8.3 mg/dL (7.9-10.9) 05/03/19 22:30 Calcium Adj for Albumin 8.1 mg/dL (8.4-10.2) L 05/03/19 22:30 0.6 mg/dL (0.0-1.1) 05/03/19 22:30 AST 47 U/L (0-48) 05/03/19 22:30 ALT 43 U/L (19-67) 05/03/19 22:30 114 U/L (50-170) 05/03/19 22:30 0.055 ng/mL (0.00-0.10) 05/03/19 22:30 B-Natriuretic Peptide 60084 pg/mL (5-550) H 05/03/19 22:30 6.9 gm/dL (6.2-8.2) 05/03/19 22:30 3.8 gm/dl (3.4-5.0) 05/03/19 22:30 Yellow 05/04/19 00:17 Clear (CLEAR) 05/04/19 00:17 6.0 pH (5.0-7.0) 05/04/19 00:17 Ur Specific Saline 1.015 SP.GR. (1.005-1.010) 05/04/19 00:17 Negative mg/dL (NEGATIVE) 05/04/19 00:17 Negative mg/dL (NEGATIVE) 05/04/19 00:17 Negative mg/dL (NEGATIVE) 05/04/19 00:17 Negative /ul (NEGATIVE) 05/04/19 00:17 Negative (NEGATIVE) 05/04/19 00:17 Negative mg/dl (NEGATIVE) 05/04/19 00:17 Normal EU/dl (NORMAL) 05/04/19 00:17 Ur Leukocyte Esterase Negative /ul (NEGATIVE) 05/04/19 00:17 None seen /hpf (0-5) 05/04/19 00:17 None seen /hpf (0-5) 05/04/19 00:17 Ur Epithelial Cells None seen /hpf (0-5) 05/04/19 00:17 Trace (NONE) 05/04/19 00:17 Culture to follow 05/04/19 00:17 Assessment/Plan - Narrative Narrative: Patient was evaluated and medical chart was reviewed and decision to admit to special care unit for atrial fibrillation with rapid ventricular response and decompensated CHF was made. Patient was to be in atrial fibrillation confirmed by EKG and with a irregular heartbeat on auscultation found, therefore she was placed on a Cardizem drip for optimal rate control. At the moment her rate has improved but she still not at goal, she is also in atrial fibrillation which might be chronic in her case. Auscultation of her lungs revealed bibasilar crackles with scattered inspiratory wheezing and patient was noted to be short of breath while speaking but she is resting comfortably. We will manage her with multiple doses of IV Lasix to treat her pulmonary edema and eventually convert from IV Cardizem to oral Cardizem for optimal rate control. Patient's routine medications were reconciled so that they will be administered while here in the hospital especially her breathing treatments and inhalers to assist in her breathing. I will also order an echocardiogram to evaluate her cardiac function since his been 5 years since the last one and patient is not very well informed on her health. - Assessment/Plan (1) Decompensated heart failure Problem: Acute (2) Atrial fibrillation Problem: Chronic (3) Atrial fibrillation with RVR Problem: Acute (4) SOB (shortness of breath) Problem: Acute (5) COPD (chronic obstructive pulmonary disease) Problem: Chronic Qualifiers: COPD type: unspecified COPD Qualified Code(s): J44.9 - Chronic obstructive pulmonary disease, unspecified
[2019-05-04] MEDS: FAMOTIDINE 20 MG TABLET PO SCH (09:39)
[2019-05-04] MEDS: DILTIAZEM HCL 60 MG TABLET PO SCH ×3 (09:40→22:20)
[2019-05-04] MEDS: ALBUTEROL SULFATE 2.5 MG/0.5 ML VIAL.NEB IH SCH ×3 (10:09→18:06)
[2019-05-04] MEDS ORDERED: ATENOLOL 25 MG TABLET PO ONE (16:21)
[2019-05-04] MEDS: ENOXAPARIN SODIUM 40 MG/0.4 ML SYRG SC SCH (16:31)
[2019-05-04] MEDS: NYSTATIN 15 APPL BTL TP SCH (20:08)
[2019-05-04] MEDS ORDERED: DIGOXIN 0.25 MG/ML AMPUL IV ONE (23:26)
[2019-05-05] MEDS: DILTIAZEM HCL 60 MG TABLET PO SCH ×4 (02:33→21:26)
[2019-05-05] MEDS: COD LIVER OIL/ZINC OXIDE 113 APPL TUBE TP PRN ×2 (03:56→08:53)
[2019-05-05] MEDS: DIGOXIN 0.25 MG/ML AMPUL IV SCH ×4 (05:14→19:50)
[2019-05-05] MEDS: ALBUTEROL SULFATE 2.5 MG/0.5 ML VIAL.NEB IH SCH ×4 (06:02→18:07)
[2019-05-05 06:17] LABS: Albumin * 3.4 gm/dl (3.4-5.0); Anion Gap 11.9 mmol/L (6.8-13.8); Ca. Corrected For Albumin 8.6 mg/dL (8.4-10.2); Calcium * 8.4 mg/dL (7.9-10.9); Carbon Dioxide 29.3 mmol/L (24-32.6); Potassium 4.2 mmol/L (3.4-4.6); Total Protein 6.5 gm/dL (6.2-8.2)
[2019-05-05] MEDS: QUEtiapine FUMARATE 25 MG TABLET PO SCH (08:49)
[2019-05-05] MEDS: FAMOTIDINE 20 MG TABLET PO SCH (08:49)
[2019-05-05] MEDS: GABAPENTIN 300 MG CAPSULE PO SCH ×3 (08:49→17:34)
[2019-05-05] MEDS: FLUTICASONE PROPION/SALMETEROL 14 PUFF DISK.W.DEV IH SCH ×2 (08:49→21:26)
[2019-05-05] MEDS: MONTELUKAST SODIUM 10 MG TABLET PO SCH (08:49)
[2019-05-05] MEDS: DOCUSATE SODIUM 100 MG CAPSULE PO SCH ×2 (08:49→21:26)
[2019-05-05] MEDS: LACTOBACILLUS ACIDOPHILUS 1 EACH CAPSULE PO SCH (08:49)
[2019-05-05] MEDS: LEVOTHYROXINE SODIUM 88 MCG TABLET PO SCH (08:49)
[2019-05-05] MEDS: TIOTROPIUM BROMIDE 5 CAP INHALER IH SCH (08:50)
[2019-05-05] MEDS: POTASSIUM CHLORIDE 10 MEQ TABLET.SA PO SCH (08:50)
[2019-05-05] MEDS: CLOPIDOGREL BISULFATE 75 MG TABLET PO SCH (08:50)
[2019-05-05] MEDS: CHOLECALCIFEROL 1,000 UNIT CAPSULE PO SCH (08:50)
[2019-05-05] MEDS: FOLIC ACID 1 MG TABLET PO SCH (08:50)
[2019-05-05] MEDS: FUROSEMIDE 10 MG/ML VIAL IV SCH (08:51)
[2019-05-05] MEDS: NYSTATIN 15 APPL BTL TP SCH ×2 (08:54→21:27)
[2019-05-05] MEDS: traMADol HCL 50 MG TABLET PO PRN (08:56)
--- NOTE | 2019-05-05 08:57 | PN ---
Subjective - Date and Time Seen Date: 05/05/19 Time: 08:40 Subjective Narrative: I have neck pain but my shortness of breath is better Objective Objective Narrative: 89-year-old female admitted for decompensated CHF, atrial fibrillation with rapid ventricular response, bilateral pulmonary edema, was evaluated at bedside while in the SCU and was found to be afebrile and in no acute distress. Patient's shortness of breath has improved after multiple doses of Lasix, she is maintaining adequate oxygen saturation and is not presenting any new symptoms. However patient's heart rate continued to be inadequately controlled despite treatment with Cardizem and beta-blockers, digoxin was added to her treatment to decrease the heart rate. She has not converted and is still in atrial fibrillation, although the patient has a history of A. fib so it is not clear how much of this is new. So far the patient has adequate output and proper diuresis. Her blood pressure started dropping last night therefore antihypert ensive as well as the Cardizem had to be held but we added digoxin in hopes of controlling her rate better. This morning's labs demonstrate a mild decrease in her GFR, likely secondary to the acute decompensation of her CHF. Repeat labs was ordered for tomorrow morning for evaluation. Patient was found to have residual bibasilar crackles on auscultation, however her lung sounds have improved since admission. Head CT was performed yesterday afternoon when the patient's stopped following orders and appeared to be drowsy and in a stupor, however results did not demonstrate any new or acute findings. This morning she is well she is once again talking and is lucid, so it is very apparent that it is likely it was a behavior that she was exhibiting yesterday afternoon. We will continue monitoring this. - Review of Systems Generalized/Overall Review: Reports: No Symptoms Reported EENTM: Reports: No Symptoms Reported Respiratory: Reports: No Symptoms Reported Cardiac: Reports: Edema Abdominal: Reports: No Symptoms Reported Genitourinary Symptoms: Reports: No Symptoms Reported Musculoskeletal Complaints: Reports: Joint Pain, Neck Pain Neurological: Reports: No Symptoms Reported Skin: Reports: No Symptoms Reported Endocrine: Reports: No Symptoms Reported - Vitals Vitals: Last Vital Signs Temp 36.6 C 05/05/19 06:39 Pulse 135 H 05/05/19 07:55 Resp 16 05/05/19 07:55 BP 125/60 10/02/19 06:39 Pulse Ox 97 05/05/19 07:55 - Abnormal Lab Findings Abnormal Lab Findings: Abnormal Lab Results 05/05/19 Range/Units 05:45 Creatinine 1.46 H (0.4-1.4) mg/dL Est GFR (Non-Af Amer) 36 L (60-130) mL/min - Exam Constitutional: Present: Alert, Oriented x3, Cooperative, Well developed, Well nourished, No distress, Elderly ENT Exam: Present: normal ENT inspection, hearing grossly normal, pharynx normal, TMs normal Neck: Present: trachea midline, limited range of motion Breasts: Present: Exam deferred Respiratory: Present: decreased breath sounds, crackles - Fine bibasilar crackles Cardiovascular/Chest: Present: normal peripheral pulses, no chest tenderness, no edema, no gallop, no JVD, no murmur, no rub, irregularly irregular Abdomen: Present: Normal bowel sounds, soft, nontender, no rebound tenderness, no hepatospenomegaly, distended - Patient's abdomen is mildly distended which she says are new finding for her due to her extensive history of abdominal surgeries to address colon cancer and chronic constipation. 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 She reports chronic neck pain that is normally controlled with tramadol, but given her hypotension with what appeared to be an altered sensorium the medication was held. Now that stroke has been ruled out and patient's vitals are back to normal all her medications including the tramadol were resumed. We will continue with p.o. Cardizem as well as digoxin for adequate heart rate control. In the meantime we will continue to diurese patient with Lasix for her fluid overload and CHF. Echocardiogram done yest erday revealed a EF of 53% and mild pulmonary hypertension, so we will keep in mind the patient has extensive cardiac history which might explain her current condition. - Problems/Diagnosis (1) Decompensated heart failure Problem: Acute (2) Atrial fibrillation Problem: Chronic (3) Atrial fibrillation with RVR Problem: Acute (4) SOB (shortness of breath) Problem: Resolved (5) COPD (chronic obstructive pulmonary disease) Problem: Chronic Qualifiers: COPD type: unspecified COPD Qualified Code(s): J44.9 - Chronic obstructive pulmonary disease, unspecified (6) Acute kidney injury superimposed on CKD Problem: Acute
[2019-05-05] MEDS ORDERED: ATENOLOL 50 MG TABLET PO SCH (09:00)
--- NOTE | 2019-05-05 09:28 | ECHO ---
This report is available in the EMR
[2019-05-05] MEDS: BACLOFEN 10 MG TABLET PO SCH ×3 (10:57→17:34)
[2019-05-05] MEDS: ENOXAPARIN SODIUM 40 MG/0.4 ML SYRG SC SCH (17:34)
[2019-05-06] MEDS: DIGOXIN 0.25 MG/ML AMPUL IV SCH ×2 (00:07→05:30)
[2019-05-06] MEDS: DILTIAZEM HCL 60 MG TABLET PO SCH ×3 (03:25→09:36)
[2019-05-06] MEDS: traMADol HCL 50 MG TABLET PO PRN (03:58)
[2019-05-06 05:58] LABS: Hemoglobin 14.5 gm/dL (12.5-16.0); Mean Cell Volume 91.5 fl (78-100); Mean Corpuscular Hemoglobin 30.9 pg (27-31); Mean Corpuscular Hgb Conc 33.7 g/dl (32-36); Mean Platelet Volume 11.7 fl (8-12.5); Neutrophil # 6.6 K/mm3 (1.3-6.0); Neutrophil % 75.5 % (42-75.0); Platelet Count 214 K/mm3 (150-450); Red Cell Distribution Width 12.9 % (11.5-14.0); White Blood Count 8.7 K/mm3 (4.0-10.5)
[2019-05-06] MEDS: ALBUTEROL SULFATE 2.5 MG/0.5 ML VIAL.NEB IH SCH ×2 (06:04→10:27)
[2019-05-06 06:24] LABS: Albumin * 3.6 gm/dl (3.4-5.0); Anion Gap 16.8 mmol/L (6.8-13.8); BUN/Creatinine Ratio 15.5 (9.0-21.6); Bilirubin, Total 0.9 mg/dL (0.0-1.1); Carbon Dioxide 26.3 mmol/L (24-32.6); Potassium 4.1 mmol/L (3.4-4.6); Total Protein 7.2 gm/dL (6.2-8.2)
[2019-05-06] MEDS: LEVOTHYROXINE SODIUM 88 MCG TABLET PO SCH (07:25)
[2019-05-06] MEDS ORDERED: SIMETHICONE 80 MG TAB.CHEW PO PRN (08:50)
[2019-05-06] MEDS ORDERED: METOPROLOL TARTRATE 1 MG/ML AMPUL IV ONE (08:53)
[2019-05-06] MEDS ORDERED: NORMAL SALINE 500 ML IV ONE (08:55)
[2019-05-06] MEDS: FLUTICASONE PROPION/SALMETEROL 14 PUFF DISK.W.DEV IH SCH (10:06)
[2019-05-06] MEDS: BACLOFEN 10 MG TABLET PO SCH (10:07)
[2019-05-06] MEDS: LACTOBACILLUS ACIDOPHILUS 1 EACH CAPSULE PO SCH (10:07)
[2019-05-06] MEDS: DOCUSATE SODIUM 100 MG CAPSULE PO SCH (10:07)
[2019-05-06] MEDS: FOLIC ACID 1 MG TABLET PO SCH (10:07)
[2019-05-06] MEDS: POTASSIUM CHLORIDE 10 MEQ TABLET.SA PO SCH (10:08)
[2019-05-06] MEDS: NYSTATIN 15 APPL BTL TP SCH (10:09)
[2019-05-06] MEDS: GABAPENTIN 300 MG CAPSULE PO SCH (10:09)
[2019-05-06] MEDS: FAMOTIDINE 20 MG TABLET PO SCH (10:09)
[2019-05-06] MEDS: MONTELUKAST SODIUM 10 MG TABLET PO SCH (10:10)
[2019-05-06] MEDS: QUEtiapine FUMARATE 25 MG TABLET PO SCH (10:10)
[2019-05-06] MEDS: CLOPIDOGREL BISULFATE 75 MG TABLET PO SCH (10:10)
[2019-05-06] MEDS: TIOTROPIUM BROMIDE 5 CAP INHALER IH SCH (10:11)
[2019-05-06] MEDS: CHOLECALCIFEROL 1,000 UNIT CAPSULE PO SCH (10:11)
[2019-05-06] MEDS ORDERED: ONDANSETRON HCL/PF 2 MG/ML VIAL IV PRN (11:17)
--- NOTE | 2019-05-06 11:55 | DS ---
Transfer Discharge Summary - Diagnosis(s)/Problems (1) Decompensated heart failure Problem: Acute (2) Atrial fibrillation Problem: Chronic (3) Atrial fibrillation with RVR Problem: Acute (4) SOB (shortness of breath) Problem: Resolved (5) COPD (chronic obstructive pulmonary disease) Problem: Chronic (6) Acute kidney injury superimposed on CKD Problem: Acute (7) Chronic kidney disease, stage 3 Problem: Acute (8) Grade III diastolic dysfunction Problem: Acute - Course Description of Stay: 89-year-old female admitted for decompensated CHF and atrial fibrilla tion with rapid ventricular response was evaluated while in the SCU and was found to be afebrile and in no acute distress. Patient was started on digoxin in addition to Cardizem yesterday and showed initial improvement in her heart rate, however early this morning her heart rate increased once again. Patient's heart rate was above 150 for which she was given metoprolol IV which improved the heart rate. However patient has been in the SCU for multiple days now and has not been able to convert or sustain controlled heart rate despite treatment. She denies any chest pain and her shortness of breath has improved however her BNP remains elevated. Patient's renal function has also decreased her GFR has dropped almost 10 points since being admitted, likely secondary to the CHF. Patient also complains of abdominal distention was noted to have marked distention of her abdomen on physical exam, therefore abdominal CT without contrast was ordered and demonstrated fluid and air levels in multiple parts of her small bowel but there was no obstruction. Patient has an extensive history of abdominal surgery to address colon cancer which might explain some of the findings on abdominal CT. It is my professional opinion that the patient be seen by wicker worker and automobile body customizer which are not available here at our institution, therefore the hospitalist credit controller at [facility] was presented with the case and he agreed to accept her therefore will be transferring patient in an ambulance to their facility. Procedures Performed: none - Results and Findings Results and Findings: Laboratory Results - last 24 hr 05/06/19 05/06/19 05/06/19 05:54 05:54 10:20 WBC 8.7 RBC 4.70 Hgb 14.5 Hct 43.0 MCV 91.5 MCH 30.9 MCHC 33.7 RDW 12.9 Plt Count 214 MPV 11.7 Immature Gran % (Auto) 0.30 Immature Gran # (Auto) 0.03 Neutrophils % 75.5 H Lymphocytes % 13.6 L Monocytes % 8.6 Eosinophils % 0.9 Basophils % 1.1 H Nucleated RBC % 0.0 Neutrophils # 6.6 H Lymphocytes # 1.18 L Monocytes # 0.8 Eosinophils # 0.1 Absolute Basophils 0.1 Sodium 134 Plasma Sodium 135 Potassium 4.1 Chloride 95 L Carbon Dioxide 26.3 Anion Gap 16.8 H BUN 29 H D Creatinine 1.87 H D Est GFR (Non-Af Amer) 27 L D BUN/Creatinine Ratio 15.5 Random Glucose 139 H D Lactic Acid, Venous 1.5 Calcium 9.0 Calcium Adj for Albumin 9.0 Total Bilirubin 0.9 AST 18 ALT 22 Alkaline Phosphatase 99 B-Natriuretic Peptide 7902 H Total Protein 7.2 Albumin 3.6 - Medications Medications: Active Medications Acetaminophen (Tylenol) 325 mg PO Q4H PRN PRN Reason: Pain Stop: 06/03/19 08:48 Last Admin: 05/06/19 07:44 Dose: 325 mg Documented by: Albuterol Sulfate (Albuterol Sulfate 2.5 Mg/0.5ml) 2.5 mg IH QIDRT [facility] Stop: 06/03/19 09:01 Last Admin: 05/06/19 10:27 Dose: 2.5 mg Documented by: Baclofen (Baclofen) 10 mg PO TID [facility] Stop: 06/03/19 09:01 Last Admin: 05/06/19 10:07 Dose: 10 mg Documented by: Cholecalciferol (Vitamin D) 1,000 unit PO DAILY [facility] Stop: 06/03/19 09:01 Last Admin: 05/06/19 10:11 Dose: 1,000 unit Documented by: Clopidogrel Bisulfate (Plavix) 75 mg PO DAILY [facility] Stop: 06/03/19 09:01 Last Admin: 05/06/19 10:10 Dose: 75 mg Documented by: Digoxin (Lanoxin) 0.125 mg IV Q6H [facility] Stop: 05/06/19 12:01 Last Admin: 05/06/19 05:30 Dose: 0.125 mg Documented by: Diltiazem HCl (Cardizem) 60 mg PO Q6H [facility] Stop: 06/03/19 09:31 Last Admin: 05/06/19 09:36 Dose: Not Given Documented by: Docusate Sodium (Colace) 100 mg PO BID [facility] Stop: 06/03/19 09:01 Last Admin: 05/06/19 10:07 Dose: 100 mg Documented by: Enoxaparin Sodium (Lovenox) 40 mg SC Q24H [facility] Stop: 06/03/19 16:16 Last Admin: 05/05/19 17:34 Dose: 40 mg Documented by: Famotidine (Pepcid) 20 mg PO DAILY [facility] Stop: 06/03/19 09:16 Last Admin: 05/06/19 10:09 Dose: 20 mg Documented by: Folic Acid (Folic Acid) 1 mg PO DAILY [facility] Stop: 06/03/19 09:01 Last Admin: 05/06/19 10:07 Dose: 1 mg Documented by: Gabapentin (Neurontin) 300 mg PO TID [facility] Stop: 06/03/19 09:01 Last Admin: 05/06/19 10:09 Dose: 300 mg Documented by: Diltiazem HCl 125 mg/ Dextrose (/Water) 125 mls @ 0 mls/hr IV TITR PRN; Protocol PRN Reason: Arrhythmia Stop: 06/02/19 22:21 Last Titration: 05/04/19 12:46 Dose: Infused Documented by: Sodium Chloride (Sodium Chloride 0.9%) 500 mls @ 80 mls/hr IV .Q6H15M ONE Stop: 05/06/19 15:09 Last Admin: 05/06/19 10:25 Dose: 80 mls/hr Documented by: Lactobacillus Acidophilus (Bacid) 1 each PO DAILY [facility] Stop: 06/03/19 09:01 Last Admin: 05/06/19 10:07 Dose: 1 each Documented by: Levothyroxine Sodium (Synthroid) 88 mcg PO DAILY@0700 [facility] Stop: 06/03/19 09:01 Last Admin: 05/06/19 07:25 Dose: 88 mcg Documented by: Montelukast Sodium (Singulair) 10 mg PO DAILY [facility] Stop: 06/03/19 09:01 Last Admin: 05/06/19 10:10 Dose: 10 mg Documented by: Nystatin (Mycostatin Powder) 1 appl TP BID [facility] Stop: 06/03/19 21:01 Last Admin: 05/06/19 10:09 Dose: 1 appl Documented by: Potassium Chloride (Klor-Con 10) 10 meq PO DAILY [facility] Stop: 06/03/19 09:01 Last Admin: 05/06/19 10:08 Dose: 10 meq Documented by: Quetiapine Fumarate (Seroquel) 25 mg PO DAILY [facility] Stop: 06/03/19 09:01 Last Admin: 05/06/19 10:10 Dose: 25 mg Documented by: Fluticasone/Salmeterol (Advair 250-50 Diskus) 1 puff IH BID [facility] Stop: 06/03/19 09:01 Last Admin: 05/06/19 10:06 Dose: 1 puff Documented by: Tiotropium [place] (Spiriva) 1 cap IH DAILY [facility] Stop: 06/03/19 09:01 Last Admin: 05/06/19 10:11 Dose: 1 cap Documented by: Tramadol HCl (Ultram) 50 mg PO Q6H PRN PRN Reason: Pain Stop: 06/03/19 08:48 Last Admin: 05/06/19 03:58 Dose: 50 mg Documented by: Zinc Oxide (Desitin) 1 appl TP PRN PRN PRN Reason: Rash Stop: 06/03/19 16:14 Last Admin: 05/05/19 08:53 Dose: 1 appl Documented by: Discontinued Medications Atenolol (Tenormin) 25 mg PO DAILY [facility] Stop: 06/03/19 09:01 Last Admin: 05/04/19 09:16 Dose: 25 mg Documented by: Atenolol (Tenormin) 25 mg PO ONCE ONE Stop: 05/04/19 16:22 Last Admin: 05/04/19 16:32 Dose: 25 mg Documented by: Digoxin (Lanoxin) 0.5 mg IV ONCE ONE Stop: 05/04/19 23:27 Last Admin: 05/04/19 23:43 Dose: 0.5 mg Documented by: Diltiazem HCl (Cardizem) 20 mg IV ONCE ONE Stop: 05/03/19 22:21 Last Admin: 05/03/19 22:24 Dose: 20 mg Documented by: Furosemide (Lasix) 40 mg IV ONCE ONE Stop: 05/03/19 23:38 Last Admin: 05/03/19 23:43 Dose: 40 mg Documented by: Furosemide (Lasix) 60 mg IV BID [facility] Stop: 05/05/19 09:01 Last Admin: 05/05/19 08:51 Dose: 60 mg Documented by: Sodium Chloride (Sodium Chloride 0.9%) 500 mls @ 500 mls/hr IV .Q1H ONE Stop: 05/04/19 02:08 Last Infusion: 05/04/19 02:34 Dose: Infused Documented by: Influenza Virus Vaccine Quadrival (Flulaval Quad Syringe) 60 mcg IM .ONCE ONE Stop: 05/04/19 09:01 Last Admin: 05/04/19 09:22 Dose: Not Given Documented by: Metoprolol Tartrate (Lopressor) 5 mg IV ONCE ONE Stop: 05/06/19 08:54 Last Admin: 05/06/19 09:41 Dose: 5 mg Documented by: - Disposition Disposition: Short Term Hospital Inpatient Condition: Stable Discharge Date: 05/06/19 Discharge Time: 11:54
[2019-05-06 12:41] VITALS: BP 138/75
== END 2019-05-06 12:15 | disposition short-term general hospital (02) | DRG 291 ==
LOC: ER 22:02 → SCU 05-04 04:52
PROVIDERS: ADMIT Family Medicine; ATTEND Family Medicine
DX: N18.3 Chronic kidney disease, stage 3 (moderate); I50.33 Acute on chronic diastolic (congestive) heart failure; N17.9 Acute kidney failure, unspecified; I13.0 Hypertensive heart and chronic kidney disease with heart failure and stage 1 through stage 4 chronic kidney disease, or unspecified chronic kidney disease; I48.20 Chronic atrial fibrillation, unspecified; J44.9 Chronic obstructive pulmonary disease, unspecified; Z87.891 Personal history of nicotine dependence
CPT/HCPCS: 36415; 70450; 71010; 71045; 71275; 74019; 74020; 74176; 80053; 81001; 83519; 83605; 83880; 84484; 85025; 85379; 87040; 87081; 87086; 93005; 93306; 94640; 94664; 94760; 96365; 96366; 96375; 99285; Q9967

== ENCOUNTER 2019-05-18 14:05 | Observation (INO) ==
[2019-05-18 14:45] LABS: Hematocrit 37.2 % (37.0-47.0); Hemoglobin 12.1 gm/dL (12.5-16.0); Mean Cell Volume 96.9 fl (78-100); Mean Corpuscular Hemoglobin 31.5 pg (27-31); Mean Corpuscular Hgb Conc 32.5 g/dl (32-36); Mean Platelet Volume 11.5 fl (8-12.5); Neutrophil # 3.1 K/mm3 (1.3-6.0); Neutrophil % 59.9 % (42-75.0); Platelet Count 161 K/mm3 (150-450); Red Blood Count 3.84 M/mm3 (4.2-5.4); Red Cell Distribution Width 14.3 % (11.5-14.0); White Blood Count 5.2 K/mm3 (4.0-10.5)
[2019-05-18 15:03] LABS: ALT 23 U/L (19-67); AST 18 U/L (0-48); Albumin * 3.1 gm/dl (3.4-5.0); Alkaline Phosphatase * 92 U/L (50-170); Anion Gap 14.2 mmol/L (6.8-13.8); BUN/Creatinine Ratio 9.3 (9.0-21.6); Bilirubin, Total 0.5 mg/dL (0.0-1.1); Blood Urea Nitrogen 12 mg/dL (3-23); Ca. Corrected For Albumin 8.6 mg/dL (8.4-10.2); Calcium * 8.2 mg/dL (7.9-10.9); Carbon Dioxide 21.1 mmol/L (24-32.6); Chloride 110 mmol/L (97-106); Glucose * 107 mg/dL (70-110); Potassium 4.3 mmol/L (3.4-4.6); Sodium 141 mmol/L (132-142); Total Protein 6.3 gm/dL (6.2-8.2); Troponin I Less than 0.017 ng/mL (0.00-0.10)
[2019-05-18 16:05] LABS: Urine Bilirubin 1 mg/dl (NEGATIVE); Urine Blood Negative /ul (NEGATIVE); Urine Ketone Negative (NEGATIVE); Urine Nitrite Negative (NEGATIVE); Urine Protein Negative (NEGATIVE); Urine Specific Gravity 1.025 SP.GR. (1.005-1.010); Urine Urobilinogen Normal (NORMAL)
[2019-05-18 16:10] LABS: Urine Appearance Clear (CLEAR); Urine Color Yellow
[2019-05-18 16:11] LABS: Urine Bacteria TRACE; Urine RBC None Seen /hpf (0-5); Urine WBC 0-5 /hpf (0-5)
--- NOTE | 2019-05-18 16:53 | ERNOTE ---
Medical Problem HPI - General Chief Complaint: General Assessment Time Seen by Provider: 05/18/19 14:15 Source: patient, EMS, long-term records Exam Limitations: dementia - Immun/Allergies/Home Medications Immunizations: IMMUNIZATION HX Immunizations Up to Date Yes History of Influenza Vaccine More Information Required Hx Pneumococcal Vaccination More Information Required Allergies/Adverse Reactions: Allergies ceftriaxone sodium [From Rocephin] Allergy (Mild, Verified 05/03/19 22:09) SWELLING Home Medications: HOME MEDICATIONS Acetaminophen [Tylenol] 325 mg PO Q4H PRN 05/03/19 [Last Taken Unknown] Albuterol Sulfate [Albuterol Sulfate 2.5 MG/0.5ML] 1 vial INHALATION QID 05/03/19 [Last Taken Unknown] Albuterol Sulfate [Proair Hfa] 1 - 2 puff INHALATION Q4H PRN 05/03/19 [Last Taken Unknown] Baclofen 10 mg PO TID 05/03/19 [Last Taken Unknown] Bisacodyl [Dulcolax Suppository] 10 mg RC BID 05/03/19 [Last Taken Unknown] Cholecalciferol (Vitamin D3) [Vitamin D3] 1,000 unit PO DAILY 05/03/19 [Last Taken Unknown] Clopidogrel Bisulfate [Plavix] 75 mg PO DAILY 05/03/19 [Last Taken Unknown] Docusate Sodium [Colace] 100 mg PO BID 05/03/19 [Last Taken Unknown] Fluticasone Propion/Salmeterol [Advair 250-50 Diskus] 1 puff INHALATION BID 05/03/19 [Last Taken Unknown] Gabapentin 300 mg PO TID 05/03/19 [Last Taken Unknown] Levothyroxine Sodium [Synthroid] 88 mcg PO DAILY 05/03/19 [Last Taken Unknown] Potassium Chloride [Klor-Con M10] 10 meq PO DAILY 05/03/19 [Last Taken Unknown] Sennosides [Senna-Extra] 17.2 mg PO HS 05/03/19 [Last Taken Unknown] Tiotropium [place] [Spiriva] 18 mcg INHALATION DAILY 05/03/19 [Last Taken Unknown] l Acidophil/B Lactis/B Longum [Florajen3 Capsule] 460 mg PO DAILY 05/03/19 [Last Taken Unknown] traMADol HCL [Ultram] 50 mg PO Q6H PRN 05/03/19 [Last Taken Unknown] folic acid 1 mg tablet See Rx Instructions .ROUTE .COMPLEX #90 tablet 05/06/19 [Last Taken Unknown] meloxicam 15 mg tablet 15 mg PO DAILY PRN #90 tab 05/07/19 [Last Taken Unknown] montelukast 10 mg tablet 10 mg PO DAILY #90 tab 05/07/19 [Last Taken Unknown] quetiapine 25 mg tablet 25 mg PO DAILY #90 tab 05/07/19 [Last Taken Unknown] polyethylene glycol 3350 17 gram oral powder packet See Rx Instructions .ROUTE .COMPLEX #180 each 05/17/19 [Last Taken Unknown] Digoxin [Lanoxin] 0.25 mg PO DAILY 05/18/19 [Last Taken Unknown] Diltiazem HCl [Cardizem] 30 mg PO TID 05/18/19 [Last Taken Unknown] Metoprolol Tartrate [Lopressor] 25 mg PO BID 05/18/19 [Last Taken Unknown] - History of Present History Narrative: Patient sent in from the long-term because they thought that she was sleeping too much and appeared to have some malaise. Patient was just sent home from the hospital in [place] where no acute intervention was indicated at that time. Timing: intermittent Severity: mild Review of Systems - Review of Systems Constitutional: Present: See HPI EYE: Present: no symptoms reported ENT: Present: no symptoms reported Respiratory: Present: no symptoms reported Cardiology: Present: no symptoms reported Gastrointestinal/Abdominal: Present: no symptoms reported Genitourinary: Present: no symptoms reported Musculoskeletal: Present: no symptoms reported Skin: Present: no symptoms reported Neurological: Present: other - Dementia Endocrine: Present: no symptoms reported Hematologic/Lymphatic: Present: no symptoms reported Psych: Present: no symptoms reported Medical History (Updated 05/06/19 @ 11:55 by Priscilla Banks MD) Weight loss (Chronic) Onset Date: ~04/15/13 Vitamin D deficiency (Chronic) Onset Date: ~08/07/12 Tremor (Chronic) Onset Date: ~12/03/11 Peripheral neuropathy (Chronic) Onset Date: ~12/03/11 Liver disease (Chronic) Onset Date: ~09/08/12 Knee pain (Chronic) Onset Date: ~09/07/12 Influenza (Chronic) Onset Date: Unknown Hypothyroidism (Chronic) Onset Date: Unknown Hypokalemia (Chronic) Onset Date: Unknown Hypertension (Chronic) Onset Date: Unknown Humerus fracture (Chronic) Onset Date: ~2007 Hearing loss (Chronic) Onset Date: Unknown GERD (gastroesophageal reflux disease) (Chronic) Onset Date: Unknown Fibromyalgia (Chronic) Onset Date: Unknown Edema (Chronic) Onset Date: Unknown Depression (Chronic) Onset Date: Unknown Dementia (Chronic) Onset Date: ~09/08/12 Colonic polyp (Chronic) Onset Date: Unknown Colon neoplasm (Chronic) Onset Date: ~1985 COPD (chronic obstructive pulmonary disease) (Chronic) Onset Date: Unknown Chronic kidney disease (Chronic) Onset Date: ~02/10/16 CVA (cerebral vascular accident) (Chronic) Onset Date: ~10/11/12 Asthma (Chronic) Onset Date: Unknown Anemia (Chronic) Onset Date: ~09/08/12 Allergic rhinitis (Chronic) Onset Date: ~01/20/14 Alcoholic hepatitis Atrial fibrillation Surgical History: Surgical History (Updated 05/04/19 @ 09:28 by Priscilla Banks MD) H/O colonoscopy Onset Date: ~10/21/16 History of adenoidectomy Onset Date: ~1939 History of appendectomy Onset Date: ~1985 History of cataract surgery Onset Date: Unknown History of colon resection Onset Date: ~1985 History of thumb surgery Onset Date: ~06/24/04 Hx of tonsillectomy Onset Date: ~1939 S/P ORIF (open reduction internal fixation) fracture Onset Date: ~02/22/08 S/P hardware removal Onset Date: ~09/19/08 Status post osteotomy Onset Date: ~02/22/08 Family History: Family History (Updated 11/10/18 @ 07:49 by Dori Shields RN) Father Heart disease Mother Old age Brother MVA (motor vehicle accident) Sister Cancer breast Crohns disease Grandmother Cancer breast Daughter Cancer breast Social History: (Last Reviewed 05/04/19 @ 06:52 by Sofia Harrell RN) Social History: long-term: No long-term comment: Assisted living at the [facility] Marital status: / household members: none current occupational status: retired Service: No Tobacco: Smoking Status: Former smoker Alcohol: alcohol intake: former Substance Use: substance use type: does not use Dietary Habits: caffeine: Yes Physical Exam - Physical Exam General Appearance: Present: wd/wn, alert, no apparent distress, sleeping/easy to arouse Head Exam: Present: normal inspection, no evidence of injury Eye Exam: Normal inspection: bilateral, PERRL: bilateral Ears, Nose, Throat: Present: normal ENT inspection, H, normal pharynx Neck: Present: normal inspection, nontender Respiratory: Present: no respiratory distress, normal breath sounds, no accessory muscle use, chest nontender, lungs clear Cardiovascular/Chest: Present: regular rate, rhythm, no murmur, normal peripheral pulses Gastrointestinal/Abdominal: Present: normal bowel sounds, nontender, nondistended, soft, no organomegaly Rectal Exam: Present: deferred Back Exam: Present: normal inspection, normal range of motion Extremity Exam: Present: normal inspection, non-tender, no edema, normal range of motion Neurological Exam: Present: normal mood/affect Skin Exam: Present: normal color, warm/dry Lymphatic Exam: Present: no adenopathy Progress - Results and Orders Patient's Lab Results:: I have reviewed the patient's lab results. - Vital Signs Patient's Vital Signs:: I have reviewed the patient's vital signs. Vital Signs: Vital Signs 05/18/19 14:05 Temperature 36.6 C Pulse Rate 80 Respiratory Rate 18 Blood Pressure 136/63 O2 Sat by Pulse Oximetry 95 - EKG EKG #1 EKG: atrial fibrillation EKG read: Reviewed by me - X-Ray X-Ray #1 X-Ray: chest Interpretation: Reviewed by me - CT/Ultrasound CT/Ultrasound Narrative: CT of the head reviewed by me - Progress/Reassessment Chief Complaint: General Assessment Plan - Plan Plan: Patient was easy to arouse and no acute abnormalities were noted on any of her x-ray examination or laboratory evaluations. I am suspecting this is more a byproduct of her dementia. The long-term was worried about her slow heart rate but the patient is on metoprolol, digoxin and diltiazem. Any 1 of these medications could cause the very mild bradycardia that the patient is having. Patient return back to the [place] with no intervention indicated at this time. Departure Clinical Impression: Chronic fatigue and malaise Dementia Qualifiers: Dementia type: unspecified type Dementia behavioral disturbance: without behavioral disturbance Qualified Code(s): F03.90 - Unspecified dementia without behavioral disturbance - Departure Disposition: Nursing Facility, Not [facility] Condition: Good Instructions: Alzheimer Disease Caregiver Guide, [id number], Dementia, [id number], Weakness, [id number] Additional Instructions: See Dr. Browne as needed Referrals: Nav Browne MD [Primary Care Provider] -
[2019-05-18] MEDS ORDERED: FLUTICASONE PROPION/SALMETEROL 14 PUFF DISK.W.DEV IH SCH (19:00)
[2019-05-18] MEDS ORDERED: ACETAMINOPHEN 325 MG TABLET PO PRN (19:37)
--- NOTE | 2019-05-18 19:42 | HP ---
Chief Complaint - Chief Complaint Date of Service: 05/18/19 Time of Service: 19:40 Chief Complaint: somnolence History of Present Illness: Patient with PMHx of dementia, COPD, previous CVA, pulmonary HTN, afib, renal disease, depression. She just left [facility] within the last 48 hours, and returned to the [facility]. When there, she was more sleepy than normal, and she was brought to the ED. She denies current complaints, and only said she has been too sleepy to wake up. She reports three new meds were started at [facility], but is unsure what they are. She denies CP, SOB, abdominal pain, but she is falling asleep during the history taking. No concerning findings were found on labs or physical exam. She does have some lower extremity swelling. She is oxygenating well on room air. She is admitted for resolution of her hypersomnolence, and potential fpc placement, since she can not care for herself. Chart review shows she was transferred from our facility earlier this month for difficult to control atrial fibrillation. Medical History (Updated 05/18/19 @ 19:54 by Nasra Tolbert DO) Weight loss (Chronic) Onset Date: ~04/15/13 Vitamin D deficiency (Chronic) Onset Date: ~08/07/12 Tremor (Chronic) Onset Date: ~12/03/11 Peripheral neuropathy (Chronic) Onset Date: ~12/03/11 Liver disease (Chronic) Onset Date: ~09/08/12 Knee pain (Chronic) Onset Date: ~09/07/12 Influenza (Chronic) Onset Date: Unknown Hypothyroidism (Chronic) Onset Date: Unknown Hypokalemia (Chronic) Onset Date: Unknown Hypertension (Chronic) Onset Date: Unknown Humerus fracture (Chronic) Onset Date: ~2007 Hearing loss (Chronic) Onset Date: Unknown GERD (gastroesophageal reflux disease) (Chronic) Onset Date: Unknown Fibromyalgia (Chronic) Onset Date: Unknown Edema (Chronic) Onset Date: Unknown Depression (Chronic) Onset Date: Unknown Dementia (Chronic) Onset Date: ~09/08/12 Colonic polyp (Chronic) Onset Date: Unknown Colon neoplasm (Chronic) Onset Date: ~1985 COPD (chronic obstructive pulmonary disease) (Chronic) Onset Date: Unknown Chronic kidney disease (Chronic) Onset Date: ~02/10/16 CVA (cerebral vascular accident) (Chronic) Onset Date: ~10/11/12 Asthma (Chronic) Onset Date: Unknown Anemia (Chronic) Onset Date: ~09/08/12 Allergic rhinitis (Chronic) Onset Date: ~01/20/14 Alcoholic hepatitis Atrial fibrillation Surgical History: Surgical History (Updated 05/04/19 @ 09:28 by Priscilla Banks MD) H/O colonoscopy Onset Date: ~10/21/16 History of adenoidectomy Onset Date: ~1939 History of appendectomy Onset Date: ~1985 History of cataract surgery Onset Date: Unknown History of colon resection Onset Date: ~1985 History of thumb surgery Onset Date: ~06/24/04 Hx of tonsillectomy Onset Date: ~1939 S/P ORIF (open reduction internal fixation) fracture Onset Date: ~02/22/08 S/P hardware removal Onset Date: ~09/19/08 Status post osteotomy Onset Date: ~02/22/08 Family History: Family History (Updated 11/10/18 @ 07:49 by Dori Shields RN) Father Heart disease Mother Old age Brother MVA (motor vehicle accident) Sister Cancer breast Crohns disease Grandmother Cancer breast Daughter Cancer breast Social History: (Last Reviewed 05/04/19 @ 06:52 by Sofia Harrell RN) Social History: fpc: No fpc comment: Assisted living at the [facility] Marital status: / household members: none current occupational status: retired Service: No Tobacco: Smoking Status: Former smoker Alcohol: alcohol intake: former Substance Use: substance use type: does not use Dietary Habits: caffeine: Yes Review Of Systems (GEN) - Review of Systems Generalized/Overall Review: Present: Weakness Respiratory: Absent: Cough, Shortness of Breath Cardiac: Absent: Chest Pain Abdominal: Absent: Nausea Genitourinary: Present: No Symptoms Reported Musculoskeletal: Present: No Symptoms Reported Neurological: Present: No Symptoms Reported Skin: Present: No Symptoms Reported Immunizations: IMMUNIZATION HX Immunizations Up to Date Yes History of Influenza Vaccine More Information Required Hx Pneumococcal Vaccination More Information Required Allergies/Adverse Reactions: Allergies Allergy/AdvReac Type Severity Reaction Status Date / Time ceftriaxone sodium Allergy Mild SWELLING Verified 05/03/19 22:09 [From Rocephin] Home Medications: HOME MEDICATIONS Acetaminophen [Tylenol] 325 mg PO Q4H PRN 05/03/19 [Last Taken Unknown] Albuterol Sulfate [Albuterol Sulfate 2.5 MG/0.5ML] 1 vial INHALATION QID 05/03/19 [Last Taken Unknown] Albuterol Sulfate [Proair Hfa] 1 - 2 puff INHALATION Q4H PRN 05/03/19 [Last Taken Unknown] Baclofen 10 mg PO TID 05/03/19 [Last Taken Unknown] Bisacodyl [Dulcolax Suppository] 10 mg RC BID 05/03/19 [Last Taken Unknown] Cholecalciferol (Vitamin D3) [Vitamin D3] 1,000 unit PO DAILY 05/03/19 [Last T aken Unknown] Clopidogrel Bisulfate [Plavix] 75 mg PO DAILY 05/03/19 [Last Taken Unknown] Docusate Sodium [Colace] 100 mg PO BID 05/03/19 [Last Taken Unknown] Fluticasone Propion/Salmeterol [Advair 250-50 Diskus] 1 puff INHALATION BID 05/03/19 [Last Taken Unknown] Gabapentin 300 mg PO TID 05/03/19 [Last Taken Unknown] Levothyroxine Sodium [Synthroid] 88 mcg PO DAILY 05/03/19 [Last Taken Unknown] Potassium Chloride [Klor-Con M10] 10 meq PO DAILY 05/03/19 [Last Taken Unknown] Sennosides [Senna-Extra] 17.2 mg PO HS 05/03/19 [Last Taken Unknown] Tiotropium [place] [Spiriva] 18 mcg INHALATION DAILY 05/03/19 [Last Taken Unknown] l Acidophil/B Lactis/B Longum [Florajen3 Capsule] 460 mg PO DAILY 05/03/19 [Last Taken Unknown] traMADol HCL [Ultram] 50 mg PO Q6H PRN 05/03/19 [Last Taken Unknown] folic acid 1 mg tablet See Rx Instructions .ROUTE .COMPLEX #90 tablet 05/06/19 [Last Taken Unknown] meloxicam 15 mg tablet 15 mg PO DAILY PRN #90 tab 05/07/19 [Last Taken Unknown] montelukast 10 mg tablet 10 mg PO DAILY #90 tab 05/07/19 [Last Taken Unknown] quetiapine 25 mg tablet 25 mg PO DAILY #90 tab 05/07/19 [Last Taken Unknown] polyethylene glycol 3350 17 gram oral powder packet See Rx Instructions .ROUTE .COMPLEX #180 each 05/17/19 [Last Taken Unknown] Digoxin [Lanoxin] 0.25 mg PO DAILY 05/18/19 [Last Taken Unknown] Diltiazem HCl [Cardizem] 30 mg PO TID 05/18/19 [Last Taken Unknown] Metoprolol Tartrate [Lopressor] 25 mg PO BID 05/18/19 [Last Taken Unknown] Exam - Exam Vital Signs: Vital Signs - Last Taken Temp 36.4 C 05/18/19 19:00 Pulse 77 05/18/19 19:00 Resp 16 05/18/19 19:00 BP 145/95 H 05/18/19 19:00 Pulse Ox 93 05/18/19 19:00 Constitutional: Present: Elderly Neck: Absent: lymphadenopathy (R), lymphadenopathy (L) Respiratory: Present: decreased breath sounds - right posterior lung base, No wheezing Cardiovascular/Chest: Present: regular rate, rhythm - afib on EKG, edema - 1+ bilateral lower legs Abdomen: Present: soft, nontender, distended Extremity: Present: lower extremity edema - 1+ bilaterally to the knee Eye contact: Present: other - somnolent Diagnostic Studies: Abnormal Lab Results 05/18/19 05/18/19 05/18/19 Range/Units 14:38 14:38 16:00 RBC 3.84 L (4.2-5.4) M/mm3 Hgb 12.1 L (12.5-16.0) gm/dL MCH 31.5 H (27-31) pg RDW 14.3 H (11.5-14.0) % Immature Gran % (Auto) 0.60 H (0.001-0.429) % Chloride 110 H (97-106) mmol/L Carbon Dioxide 21.1 L (24-32.6) mmol/L Anion Gap 14.2 H (6.8-13.8) mmol/L Est GFR (Non-Af Amer) 42 L D (60-130) mL/min Albumin 3.1 L (3.4-5.0) gm/dl Urine Bilirubin 1 H (NEGATIVE) mg/dl Laboratory Results WBC 5.2 K/mm3 (4.0-10.5) 05/18/19 14:38 RBC 3.84 M/mm3 (4.2-5.4) L 05/18/19 14:38 Hgb 12.1 gm/dL (12.5-16.0) L 05/18/19 14:38 Hct 37.2 % (37.0-47.0) 05/18/19 14:38 MCV 96.9 fl (78-100) 05/18/19 14:38 MCH 31.5 pg (27-31) H 05/18/19 14:38 MCHC 32.5 g/dl (32-36) 05/18/19 14:38 RDW 14.3 % (11.5-14.0) H 05/18/19 14:38 Plt Count 161 K/mm3 (150-450) 05/18/19 14:38 MPV 11.5 fl (8-12.5) 05/18/19 14:38 Immature Gran % (Auto) 0.60 % (0.001-0.429) H 05/18/19 14:38 Immature Gran # (Auto) 0.03 K/mm3 (0.000-0.0310) 05/18/19 14:38 59.9 % (42-75.0) 05/18/19 14:38 28.8 % (20-51) 05/18/19 14:38 8.8 % (0.0-9) 05/18/19 14:38 1.1 % (0.0-3.0) 05/18/19 14:38 0.8 % (0.0-1.0) 05/18/19 14:38 Nucleated RBC % 0.0 k/mm3 (0-1) 05/18/19 14:38 3.1 K/mm3 (1.3-6.0) 05/18/19 14:38 1.51 k/mm3 (1.5-3.5) 05/18/19 14:38 0.5 k/mm3 (0.0-1.0) 05/18/19 14:38 0.1 k/mm3 (0.0-0.7) 05/18/19 14:38 Absolute Basophils 0.0 k/mm3 (0.0-0.1) 05/18/19 14:38 Sodium 141 mmol/L (132-142) 05/18/19 14:38 141 mmol/L (130-142) 05/18/19 14:38 Potassium 4.3 mmol/L (3.4-4.6) 05/18/19 14:38 Chloride 110 mmol/L (97-106) H 05/18/19 14:38 Carbon Dioxide 21.1 mmol/L (24-32.6) L 05/18/19 14:38 14.2 mmol/L (6.8-13.8) H 05/18/19 14:38 BUN 12 mg/dL (3-23) D 05/18/19 14:38 1.29 mg/dL (0.4-1.4) 05/18/19 14:38 Est GFR (Non-Af Amer) 42 mL/min (60-130) L D 05/18/19 14:38 9.3 (9.0-21.6) 05/18/19 14:38 107 mg/dL (70-110) 05/18/19 14:38 Calcium 8.2 mg/dL (7.9-10.9) 05/18/19 14:38 Calcium Adj for Albumin 8.6 mg/dL (8.4-10.2) 05/18/19 14:38 0.5 mg/dL (0.0-1.1) 05/18/19 14:38 AST 18 U/L (0-48) 05/18/19 14:38 ALT 23 U/L (19-67) 05/18/19 14:38 92 U/L (50-170) 05/18/19 14:38 Less than 0.017 ng/mL (0.00-0.10) 05/18/19 14:38 6.3 gm/dL (6.2-8.2) 05/18/19 14:38 3.1 gm/dl (3.4-5.0) L 05/18/19 14:38 Yellow 05/18/19 16:00 Clear (CLEAR) 05/18/19 16:00 6.0 pH (5.0-7.0) 05/18/19 16:00 Ur Specific [place] 1.025 SP.GR. (1.005-1.010) 05/18/19 16:00 Negative mg/dL (NEGATIVE) 05/18/19 16:00 Negative mg/dL (NEGATIVE) 05/18/19 16:00 Negative mg/dL (NEGATIVE) 05/18/19 16:00 Negative /ul (NEGATIVE) 05/18/19 16:00 Negative (NEGATIVE) 05/18/19 16:00 1 mg/dl (NEGATIVE) H 05/18/19 16:00 Negative (NEGATIVE) 05/18/19 16:00 Normal EU/dl (NORMAL) 05/18/19 16:00 Ur Leukocyte Esterase Negative /ul (NEGATIVE) 05/18/19 16:00 None seen /hpf (0-5) 05/18/19 16:00 0-5 /hpf (0-5) 05/18/19 16:00 Ur Epithelial Cells 0-5 /hpf (0-5) 05/18/19 16:00 Trace (NONE) 05/18/19 16:00 Culture to follow 05/18/19 16:00 Assessment/Plan - Assessment/Plan (1) Encephalopathy Assessment: Unknown source at this time, but will need to get records from her [facility] hospitalization. Differential includes medication side effect, hypoxia, hypoglycemia, infectious source, electrolyte abnormality. With her mostly normal labs, many of these are ruled out. ABGs pending. PT eval order placed. Problem: Acute (2) Requires assistance with activities of daily living (ADL) Assessment: She is unable to care for herself currently, and the [facility] is not likely the appropriate place for her, since it's assisted living. Will enlist the assistance of case management in the morning for potential placement after discharge. Problem: Acute (3) Dementia Problem: Chronic Qualifiers: Dementia type: unspecified type Dementia behavioral disturbance: without behavioral disturbance Qualified Code(s): F03.90 - Unspecified dementia without behavioral disturbance (4) Abdominal distension (gaseous) Problem: Chronic (5) Atrial fibrillation Assessment: appears to be controlled currently. Will need to verify medications with recent DC. Problem: Chronic (6) COPD (chronic obstructive pulmonary disease) Problem: Chronic Qualifiers: COPD type: unspecified COPD Qualified Code(s): J44.9 - Chronic obstructive pulmonary disease, unspecified (7) Chronic kidney disease, stage 3 Problem: Acute (8) Hypertension Problem: Chronic (9) Grade III diastolic dysfunction Problem: Chronic (10) Edema Assessment: Will administer 40 mg IV lasix in the morning. No pleural effusion seen on her one view portable CXR. Problem: Chronic
[2019-05-18] MEDS ORDERED: ALBUTEROL SULFATE 2.5 MG/0.5 ML VIAL.NEB IH SCH (21:00)
[2019-05-19] MEDS ORDERED: FUROSEMIDE 10 MG/ML VIAL IV ONE (05:00)
[2019-05-19] MEDS ORDERED: ALBUTEROL SULFATE 200 PUFF INHALER IH PRN (05:04)
[2019-05-19] MEDS ORDERED: SENNOSIDES 8.6 MG TABLET PO PRN (05:04)
[2019-05-19] MEDS ORDERED: DOCUSATE SODIUM 100 MG CAPSULE PO PRN (05:04)
[2019-05-19] MEDS ORDERED: ALBUTEROL SULFATE 2.5 MG/0.5 ML VIAL.NEB IH ONE (05:47)
[2019-05-19] MEDS: ALBUTEROL SULFATE 2.5 MG/0.5 ML VIAL.NEB IH SCH ×2 (06:07→10:06)
[2019-05-19] MEDS ORDERED: ALBUTEROL SULFATE 2.5 MG/0.5 ML VIAL.NEB IH PRN (06:21)
[2019-05-19] MEDS ORDERED: LEVOTHYROXINE SODIUM 88 MCG TABLET PO SCH (06:30)
[2019-05-19] MEDS: DILTIAZEM HCL 30 MG TABLET PO SCH ×2 (08:20→12:23)
[2019-05-19] MEDS: TIOTROPIUM BROMIDE 5 CAP INHALER IH SCH ×2 (08:21→10:02)
[2019-05-19] MEDS ORDERED: MONTELUKAST SODIUM 10 MG TABLET PO SCH ×2 (09:00→21:00)
[2019-05-19] MEDS ORDERED: FLU VACC QS2019-20(6MOS UP)/PF 60 MCG/0.5 ML SYRINGE IM ONE (09:00)
[2019-05-19] MEDS ORDERED: METOPROLOL TARTRATE 25 MG TABLET PO SCH (09:00)
[2019-05-19] MEDS ORDERED: FLUTICASONE PROPION/SALMETEROL 14 PUFF DISK.W.DEV IH SCH (09:00)
[2019-05-19] MEDS ORDERED: POLYETHYLENE GLYCOL 3350 17 GM PACKET PO SCH (09:00)
[2019-05-19] MEDS ORDERED: CLOPIDOGREL BISULFATE 75 MG TABLET PO SCH (09:00)
[2019-05-19] MEDS ORDERED: DIGOXIN 0.25 MG TABLET PO SCH (09:00)
--- NOTE | 2019-05-19 10:18 | DS ---
(1) Encephalopathy Problem: Resolved (2) Requires assistance with activities of daily living (ADL) Problem: Acute (3) Dementia Problem: Inactive Qualifiers: Dementia type: unspecified type Dementia behavioral disturbance: without behavioral disturbance Qualified Code(s): F03.90 - Unspecified dementia without behavioral disturbance (4) Abdominal distension (gaseous) Problem: Chronic (5) Atrial fibrillation Problem: Chronic (6) COPD (chronic obstructive pulmonary disease) Problem: Chronic Qualifiers: COPD type: unspecified COPD Qualified Code(s): J44.9 - Chronic obstructive pulmonary disease, unspecified (7) Chronic kidney disease, stage 3 Problem: Chronic (8) Hypertension Problem: Chronic (9) Grade III diastolic dysfunction Problem: Chronic (10) Edema Problem: Chronic Date of Discharge:: 05/19/19 Description of Stay: Patient with PMHx of COPD, previous CVA, pulmonary HTN, afib, renal disease, depression. She just left [facility] within the last 48 hours, and returned to the [facility]. When there, she was more sleepy than normal, and she was brought to the ED. She denies current complaints, and only said she has been too sleepy to wake up. She reports three new meds were started at [facility], but is unsure what they are. She denies CP, SOB, abdominal pain, but she is falling asleep during the history taking. No concerning findings were found on labs or physical exam. She does have some lower extremity swelling. She is oxygenating well on room air. She is admitted for resolution of her hypersomnolence, and potential group home placement. Chart review shows she was transferred from our facility earlier this month for difficult to control atrial fibrillation. She was given a dose of IV lasix. The day after admission, she was alert and oriented. She denies having a history of dementia. She reports feeling back to her baseline. I suspect she may have not taken her meds correctly at the [facility], causing her somnolence yesterday. She is prescribed several meds that cause increased somnolence, including seroquel, gabapentin, and baclofen. Recommend she has assistance with medications after DC. She feels comfortable returning to the [facility]. Procedures Performed: none Results and Findings: Pending Mircobiology Results 05/18/19 15:55 Urine,Catheterized Urine Culture - Preliminary No Growth Lab Pending Results 05/18/19 14:38: WBC 5.2, RBC 3.84 L, Hgb 12.1 L, Hct 37.2, MCV 96.9, MCH 31.5 H, MCHC 32.5, RDW 14.3 H, Plt Count 161, MPV 11.5, Immature Gran % (Auto) 0.60 H, Immature Gran # (Auto) 0.03, Neutrophils % 59.9, Lymphocytes % 28.8, Monocytes % 8.8, Eosinophils % 1.1, Basophils % 0.8, Nucleated RBC % 0.0, Neutrophils # 3.1, Lymphocytes # 1.51, Monocytes # 0.5, Eosinophils # 0.1, Absolute Basophils 0.0 05/18/19 14:38: Sodium 141, Plasma Sodium 141, Potassium 4.3, Chloride 110 H, Carbon Dioxide 21.1 L, Anion Gap 14.2 H, BUN 12 D, Creatinine 1.29, Est GFR (Non-Af Amer) 42 L D, BUN/Creatinine Ratio 9.3, Random Glucose 107, Calcium 8.2, Calcium Adj for Albumin 8.6, Total Bilirubin 0.5, AST 18, ALT 23, Alkaline Phosphatase 92, Troponin I Less than 0.017, Total Protein 6.3, Albumin 3.1 L 05/18/19 16:00: Urine Color Yellow, Urine Appearance Clear, Urine pH 6.0, Ur Specific [place] 1.025, Urine Protein Negative, Urine Glucose (UA) Negative, Urine Ketones Negative, Urine Blood Negative, Urine Nitrate Negative, Urine Bilirubin 1 H, Urine Ictotest Negative, Urine Urobilinogen Normal, Ur Leukocyte Esterase Negative, Urine RBC None seen, Urine WBC 0-5, Ur Epithelial Cells 0-5, Urine Bacteria Trace, Urine Culture Comments Culture to follow 05/18/19 20:00: Troponin I Less than 0.017 05/18/19 20:45: pCO2 29.4 L, pO2 83.0, HCO3 17.0 L, Total CO2 17.9 L, Base Excess -6.9 L, ABG pH 7.38, ABG O2 Sat (Measured) 96.2 Discharge Location: [facility] Disposition: Home Health Service Home Health Agency: [facility] Condition: Fair Discharge Activity: Activity as tolerated Discharge Diet: General/regular food Referrals: Nav Browne MD [Primary Care Provider] - One Week Additional Patient Instructions (free text): Resume previous services with [facility]. Please call report to [phone]. Fax orders at [place] also. Please call ALL medications into [facility]. [facility] wants them on file since they are going to take care of her medications. This includes ALL medications on her [place] medication list (previous and new). Jonatan's phone number is [phone]. Le has a scheduled TCM appointment om 2018. Thank you! Greer @ ext. [phone]. Complete Home Medications List: Complete Home Medication List: Acetaminophen [Tylenol] 325 mg PO Q4H PRN 05/03/19 Albuterol Sulfate [Albuterol Sulfate 2.5 MG/0.5ML] 1 vial INHALATION QID 05/03/19 Albuterol Sulfate [Proair Hfa] 1 - 2 puff INHALATION Q4H PRN 05/03/19 Baclofen 10 mg PO TID 05/03/19 Bisacodyl [Dulcolax Suppository] 10 mg RC BID 05/03/19 Cholecalciferol (Vitamin D3) [Vitamin D3] 1,000 unit PO DAILY 05/03/19 Clopidogrel Bisulfate [Plavix] 75 mg PO DAILY 05/03/19 Docusate Sodium [Colace] 100 mg PO BID PRN 05/03/19 Fluticasone Propion/Salmeterol [Advair 250-50 Diskus] 1 puff INHALATION BID 05/03/19 Gabapentin 300 mg PO TID 05/03/19 Levothyroxine Sodium [Synthroid] 88 mcg PO DAILY 05/03/19 Potassium Chloride [Klor-Con M10] 10 meq PO BID 05/03/19 Tiotropium [place] [Spiriva] 18 mcg INHALATION DAILY 05/03/19 l Acidophil/B Lactis/B Longum [Florajen3 Capsule] 460 mg PO DAILY 05/03/19 traMADol HCL [Ultram] 50 mg PO Q6H PRN 05/03/19 meloxicam 15 mg tablet 15 mg PO DAILY PRN #90 tab 05/07/19 montelukast 10 mg tablet 10 mg PO DAILY #90 tab 05/07/19 quetiapine 25 mg tablet 25 mg PO DAILY #90 tab 05/07/19 Digoxin [Lanoxin] 0.25 mg PO DAILY 05/18/19 Diltiazem HCl [Cardizem] 30 mg PO TID 05/18/19 Folic Acid 1 mg PO DAILY 05/18/19 Metoprolol Tartrate [Lopressor] 25 mg PO BID 05/18/19 Polyethylene Glycol 3350 [Miralax] 17 gm PO DAILY 05/18/19 Sennosides [Senna Lax] 34.4 mg PO HS PRN 05/18/19
[2019-05-19 14:37] VITALS: BP 133/62
== END 2019-05-19 14:35 | disposition home health service (06) ==
LOC: MS 14:05 → ER 14:05 → MS 18:39
PROVIDERS: ADMIT Family Medicine; ATTEND Family Medicine
DX: R14.0 Abdominal distension (gaseous); R60.9 Edema, unspecified; I48.20 Chronic atrial fibrillation, unspecified; F03.90 Unspecified dementia, unspecified severity, without behavioral disturbance, psychotic disturbance, mood disturbance, and anxiety; J44.9 Chronic obstructive pulmonary disease, unspecified; I12.9 Hypertensive chronic kidney disease with stage 1 through stage 4 chronic kidney disease, or unspecified chronic kidney disease; Z23 Encounter for immunization; G93.40 Encephalopathy, unspecified; N18.3 Chronic kidney disease, stage 3 (moderate)
CPT/HCPCS: 36415; 36600; 51701; 70450; 71010; 71045; 80053; 81001; 82803; 84484; 85025; 87081; 87086; 90686; 93005; 94640; 94664; 96374; 97162; 99285; G0008; G0378